=== PATIENT | female | born 1990 | race Two or more races ===

== ENCOUNTER 2018-09-22 07:55 | Inpatient (IN) | payer OTHER ==
[2018-09-22 08:09] VITALS: BMI 46.3
--- NOTE | 2018-09-22 08:26 | PDOC ---
History of Present Illness - General Chief Complaint: Wound Stated Complaint: LUMP ON BUTTOCK History Source: Patient Exam Limitations: No Limitations - History of Present Illness Initial Comments: 09/22/18 09:01 27 yo F with a hx of abscess in the left buttocks inferior aspect presents with pain in the left buttocks region. She states the pain began yesterday. Described as a sharp, 10/10, non radiating, with aggravation with movement, and constant. Per the patient, this is larger than her previous one. Denies fever and chills. Denies paresthesia, incontinence, LE weakness and loss of sensation , and ataxia. 09/22/18 09:32 Past History - Past Medical History Allergies/Adverse Reactions: Allergies Allergy/AdvReac Type Severity Reaction Status Date / Time No Known Allergies Allergy Verified 09/22/18 08:04 Home Medications: Ambulatory Orders Amox-Tr/K Cl [Augmentin - 875Mg Tablet] 1 tab PO BID #14 tablet 09/22/18 Asthma: No Cancer: No Cardiac Disorders: No COPD: No Diabetes: No HTN: No Seizures: No Thyroid Disease: No - Immunization History Immunization Up to Date: No - Suicide/Smoking/Psychosocial Hx Smoking Status: No Smoking History: Unknown if ever smoked Have you smoked in the past 12 months: No Number of Cigarettes Smoked Daily: 0 Hx Alcohol Use: No Drug/Substance Use Hx: No Substance Use Type: None Hx Substance Use Treatment: No Review of Systems - Review of Systems Able to Perform ROS?: Yes Is the patient limited Senegalese proficient: No Constitutional: No: Chills, Diaphoresis, Fever, Weakness HEENTM: No: Eye Pain, Recent change in vision, Ear Pain, Nose Pain, Throat Pain , Mouth Pain Respiratory: No: Cough, Shortness of Breath, Hemoptysis Cardiac (ROS): No: Chest Pain, Lightheadedness, Palpitations, Syncope, Chest Tightness ABD/GI: No: Constipated, Diarrhea, Nausea, Poor Appetite, Poor Fluid Intake, Rectal Bleeding, Vomiting, Indigestion, Abdominal cramping, Tarry Stools : No: Burning, Dysuria, Hematuria Musculoskeletal: No: Back Pain, Joint Pain, Neck Pain Integumentary: Yes: Lesions (abscess on left buttock). No: Bruising, Pruritus, Rash Neurological: No: Headache, Numbness, Tingling, Tremors, Ataxia, Dizziness Psychiatric: No: Change in Appetite Endocrine: No: Unexplained Weight Gain Hematologic/Lymphatic: No: Anemia *Physical Exam - Vital Signs Last Vital Signs Temp Pulse Resp BP Pulse Ox 98.2 F 88 24 H 120/90 99 09/22/18 08:04 09/22/18 08:04 09/22/18 08:04 09/22/18 08:04 09/22/18 08:04 - Physical Exam General Appearance: Yes: Nourished, Appropriately Dressed, Obese. No: Apparent Distress, Intoxicated HEENT: positive: EOMI, LILIYA, Normal Voice, Symmetrical, Pharynx Normal, Hearing Grossly Normal. negative: Pale Conjunctivae, Scleral Icterus (R), Scleral Icterus (L), Muffled/Hoarse voice, Pharyngeal Erythema, Tonsillar Exudate, Tonsillar Erythema, Nasal Congestion, Rhinorrhea, Sinus Tenderness, Excessive drooling Neck: positive: Trachea midline, Supple. negative: Tender, Lymphadenopathy (R) , Lymphadenopathy (L), Tender lateral, Tender midline Respiratory/Chest: positive: Lungs Clear, Normal Breath Sounds. negative: Chest Tender, Respiratory Distress, Accessory Muscle Use, Crackles, Rales, Rhonchi, Stridor Cardiovascular: positive: Regular Rhythm, Regular Rate, S1, S2. negative: Systolic Murmur Gastrointestinal/Abdominal: positive: Normal Bowel Sounds, Flat, Soft. negative : Tender Lymphatic: negative: Adenopathy Musculoskeletal: positive: Normal Inspection. negative: CVA Tenderness, Vertebral Tenderness Extremity: positive: Normal Capillary Refill, Normal Inspection, Normal Range of Motion. negative: Tender, Swelling, Calf Tenderness Integumentary: positive: Normal Color, Dry, Warm, Other (4x3cm abscess located on inferior medial aspect of buttock without red streaks and drainage) Neurologic: positive: felt strip finisher II-XII NML intact, Fully Oriented, Alert, Normal Mood/ Affect, Normal Response, Motor Strength 5/5. negative: EOM Palsy, Facial Droop , Sensory Deficit Moderate Sedation - Procedure Monitoring Vital Signs: Procedure Monitoring Vital Signs Temperature 98.2 F 09/22/18 08:04 Pulse Rate 88 09/22/18 08:04 Respiratory Rate 24 H 09/22/18 08:04 Blood Pressure 120/90 09/22/18 08:04 O2 Sat by Pulse Oximetry (%) 99 09/22/18 08:04 Heart Score/ECG Review - ECG Intrepretation Comment:: ventricular rate is 80 bpm, W[place] is 172 ms, QTc is 410 ms, QRS is [address] elevations or depressions. ED Treatment Course - LABORATORY CBC & Chemistry Diagram: 09/23/18 06:00 09/23/18 06:00 Medical Decision Making - Medical Decision Making 27 yo F with a hx of abscess in the left buttocks inferior aspect presents with pain in the left buttocks region Initial vitals; Initial Vital Signs Temp Pulse Resp BP Pulse Ox 98.2 F 88 24 H 120/90 99 09/22/18 08:04 09/22/18 08:04 09/22/18 08:04 09/22/18 08:04 09/22/18 08:04 Work up: ddx: abscess vs cellulitis will perform an ID to drain abscess. will likely prescribe keflex and bactrim for outpatient use given MRSA history. 09/22/18 10:21 Patient is unable to tolerate I&D due to concerns of pain and inability to tolerate the procedure. requests to be admitted and to go to surgery. will order pre-operative labs. Laboratory Tests 09/22/18 09/22/18 09/22/18 09:44 09:44 11:30 WBC 11.2 H RBC 4.31 Hgb 12.7 Hct 37.2 MCV 86.2 MCH 29.5 MCHC 34.2 RDW 13.4 Plt Count 306 MPV 8.5 Absolute Neuts (auto) 8.3 H Neutrophils % 74.1 Lymphocytes % 18.8 Monocytes % 6.5 Eosinophils % 0.3 D Basophils % 0.3 Nucleated RBC % 0 PT with INR INR PTT (Actin FS) Sodium Potassium Chloride Carbon Dioxide Anion Gap BUN Creatinine Creat Clearance w eGFR Random Glucose Lactic Acid Calcium Total Bilirubin AST ALT Alkaline Phosphatase Total Protein Albumin Urine Color Charity Urine Appearance Cloudy Urine pH 6.0 Ur Specific [place] 1.030 Urine Protein 2+ H Urine Glucose (UA) Negative Urine Ketones Negative Urine Blood 1+ H Urine Nitrite Negative Urine Bilirubin Negative Urine Urobilinogen 2.0 H Ur Leukocyte Esterase 2+ H Urine WBC (Auto) 6 Urine RBC (Auto) 205 Urine HCG, Qual Negative Blood Type Antibody Screen 09/22/18 09/22/18 09/22/18 11:30 11:30 11:30 WBC RBC Hgb Hct MCV MCH MCHC RDW Plt Count MPV Absolute Neuts (auto) Neutrophils % Lymphocytes % Monocytes % Eosinophils % Basophils % Nucleated RBC % PT with INR 14.00 H INR 1.18 H PTT (Actin FS) 32.8 Sodium 139 Potassium 3.9 Chloride 106 Carbon Dioxide 27 Anion Gap 6 L BUN 9 Creatinine 0.6 Creat Clearance w eGFR > 60 Random Glucose 86 Lactic Acid 0.7 Calcium 9.3 Total Bilirubin 0.3 AST 11 L ALT 24 Alkaline Phosphatase 81 Total Protein 7.8 Albumin 3.6 Urine Color Urine Appearance Urine pH Ur Specific [place] Urine Protein Urine Glucose (UA) Urine Ketones Urine Blood Urine Nitrite Urine Bilirubin Urine Urobilinogen Ur Leukocyte Esterase Urine WBC (Auto) Urine RBC (Auto) Urine HCG, Qual Blood Type Antibody Screen 09/22/18 09/22/18 11:30 12:00 WBC RBC Hgb Hct MCV MCH MCHC RDW Plt Count MPV Absolute Neuts (auto) Neutrophils % Lymphocytes % Monocytes % Eosinophils % Basophils % Nucleated RBC % PT with INR INR PTT (Actin FS) Sodium Potassium Chloride Carbon Dioxide Anion Gap BUN Creatinine Creat Clearance w eGFR Random Glucose Lactic Acid Calcium Total Bilirubin AST ALT Alkaline Phosphatase Total Protein Albumin Urine Color Urine Appearance Urine pH Ur Specific [place] Urine Protein Urine Glucose (UA) Urine Ketones Urine Blood Urine Nitrite Urine Bilirubin Urine Urobilinogen Ur Leukocyte Esterase Urine WBC (Auto) Urine RBC (Auto) Urine HCG, Qual Blood Type O POSITIVE Cancelled Antibody Screen Negative Cancelled slight elevation in WBC count. 2+ leukocyste esterase with 6 wbc. given ceftriaxone and flagyl for brock-rectal coverage for abscess. patient was given tylenol for pain management. Consulted Dr. Pagan for surgery. Dr. Pagan accepted the patient. Patient will be admitted. Dispo: Admit. *DC/Admit/Observation/Transfer Diagnosis at time of Disposition: Abscess of buttock - Discharge Dispostion Disposition: HOME Condition at time of disposition: Improved - Prescriptions - Referrals - Patient Instructions - Post Discharge Activity
[2018-09-22] MEDS ORDERED: LIDOCAINE HCL 1%, 10 MG/ML (50 mL VIAL) SQ ONE (09:26)
[2018-09-22] MEDS ORDERED: LIDOCAINE HCL 1%, 10 MG/ML (20ML VIAL) ONE (09:28)
--- NOTE | 2018-09-22 09:28 | PDOC ---
Attending Attestation - Resident Resident Name: Quincy Celeste - ED Attending Attestation I have performed the following: I have examined & evaluated the patient, The case was reviewed & discussed with the resident, I agree w/resident's findings & plan, Exceptions are as noted - HPI HPI: 09/22/18 09:13 27 year old female c/ hx of obesity, bipolar disorder, prior abscesses p/w left lower buttocks abscess. Pt reported that she noticed it approx 2 days ago. Noted that it was fluctuant and tender. But denies fevers, chills. Denies rectal pain. Pt reported having a similar situation in February 2018 that required drainage. Pt incidentally noted to have very small distal medial bilateral inner thigh mild fungal rash (likely from repeated contact between thighs when walking) - Physicial Exam PE: 09/22/18 09:16 GENERAL: Awake, alert, and fully oriented, in no acute distress HEAD: No signs of trauma EYES: EOMI, sclera anicteric, conjunctiva clear ENT: Auricles normal inspection, hearing grossly normal, nares patent, Moist mucosa NECK: Normal ROM, supple EXTREMITIES: Normal range of motion, no edema. No clubbing or cyanosis. No cords, erythema, or tenderness NEUROLOGICAL: Cranial nerves II through XII grossly intact. Normal speech, normal gait SKIN: Left lower buttocks (not extending to rectum) ~ 4x4 cm induration and fluctuance, tender to palpation. - Medical Decision Making 09/22/18 09:28 Vital Signs Temp Pulse Resp BP Pulse Ox 98.2 F 88 24 H 120/90 99 09/22/18 08:04 09/22/18 08:04 09/22/18 08:04 09/22/18 08:04 09/22/18 08:04 Impression: left buttocks abscess with surrounding cellulitis Otherwise, nontoxic appearing and well-appearing. I suspect possible community acquired MRSA I agree with plan for incision and drainage and packing. Wound culture Empiric bactrim and cephalexin Pt incidentally does have these very mild tinea on bilateral inner thighs. Clotrimazole topical BID x 2 weeks 09/22/18 10:18 Pt is absolutely afraid of the pain. After discussion with the patient, patient is unable to comply with bedside I&D. Will obtain labs and cultures. Initiate IV antibiotics ceftriaxone and flagyl. Admit.
[2018-09-22] MEDS ORDERED: ACETAMINOPHEN 1000 MG/100 ML VIAL (NON FORMULARY) IVPB ONE (10:15)
[2018-09-22] MEDS ORDERED: CEFTRIAXONE 1,000 MG in DEXTROSE 5%-WATER - 50 ML IVPB ONE (10:15)
[2018-09-22 10:22] LABS: URINE APPEARANCE CLOUDY; URINE BILIRUBIN NEGATIVE (<2.0 mg/dL); URINE COLOR AMBER; URINE GLUCOSE (UA) NEGATIVE (NEGATIVE); URINE KETONE NEGATIVE (NEGATIVE); URINE LEUK ESTERASE 2+ (NEGATIVE); URINE NITRITE NEGATIVE (NEGATIVE); URINE PROTEIN 2+ (NEGATIVE)
[2018-09-22 11:58] LABS: BASO % 0.3 % (0-2.0); EOS % 0.3 % (0-4.5); HEMATOCRIT 37.2 % (32.4-45.2); HEMOGLOBIN 12.7 GM/dL (10.7-15.3); LYMPH % 18.8 % (8-40); MCH 29.5 pg (25.7-33.7); MCHC 34.2 g/dl (32.0-36.0); MEAN CELL VOLUME 86.2 fl (80-96); MEAN PLT VOLUME 8.5 fl (7.5-11.1); MONO % 6.5 % (3.8-10.2); NEUT % 74.1 % (42.8-82.8); PLATELET COUNT 306 K/MM3 (134-434); RBC 4.31 M/mm3 (3.60-5.2); RDW 13.4 % (11.6-15.6); WHITE BLOOD COUNT 11.2 K/mm3 (4.0-10.0)
[2018-09-22] MEDS ORDERED: morphine CARPU-JECT 2 MG/1 ML DISP.SYRIN IVPUSH ONE (12:09)
[2018-09-22] MEDS ORDERED: ACETAMINOPHEN INJECTION 100 ML IVPB ONE (12:22)
[2018-09-22] MEDS ORDERED: CEFTRIAXONE 1 GM/50 ML BAG ONE (12:22)
[2018-09-22 12:31] LABS: ALBUMIN 3.6 g/dl (3.4-5.0); ALK PHOS 81 U/L (45-117); ANION GAP 6 MMOL/L (8-16); BILIRUBIN,TOTAL 0.3 mg/dL (0.2-1); BLOOD UREA NITROGEN 9 mg/dL (7-18); CALCIUM 9.3 mg/dL (8.5-10.1); CHLORIDE 106 mmol/L (98-107); CO2 27 mmol/L (21-32); CREATININE 0.6 mg/dL (0.55-1.3); GLUCOSE,RANDOM 86 mg/dL (74-106); POTASSIUM 3.9 mmol/L (3.5-5.1); SGOT/AST 11 U/L (15-37); SGPT/ALT 24 U/L (13-61); SODIUM 139 mmol/L (136-145); TOT PROT 7.8 g/dl (6.4-8.2)
[2018-09-22 12:47] LABS: INR 1.18 (0.83-1.09)
[2018-09-22 12:50] LABS: ACTIVATED PTT 32.8 SECONDS (25.2-36.5)
[2018-09-22] MEDS ORDERED: MIDAZOLAM HCL 2 MG/2 ML SINGLE DOSE VIAL ONE (15:08)
[2018-09-22] MEDS ORDERED: PROPOFOL 20 ML ONE (15:08)
[2018-09-22] MEDS ORDERED: PROMETHAZINE HCL 25 MG/1 ML VIAL IVPUSH PRN ×2 (15:09→16:53)
[2018-09-22] MEDS ORDERED: ONDANSETRON 4 MG/2 ML VIAL IVPUSH PRN ×2 (15:09→16:53)
[2018-09-22] MEDS ORDERED: oxyCODONE HCL 5 MG TABLET PO PRN (15:09)
[2018-09-22] MEDS ORDERED: LIDOCAINE HCL/PF 2% SDV 5ML VIAL ONE (15:25)
--- NOTE | 2018-09-22 15:26 | CONSULT ---
- Consultation REQUESTING PROVIDER: Wendie GORDILLO CONSULT REQUEST: We have been asked to surgically evaluate this patient for management of an ABSSSI of the left medial thigh PCP:Venecia Gregory NP HISTORY OF PRESENT ILLNESS:27 y/o female w/h/o previous ABSSSI in the past presented w/pain and swelling over # days; she came to the ER for rvaluation where she refused I and D under [place]. PMHx: none PSHx: foot surgery Home Medications Medication Instructions Recorded Amox-Tr/K Cl [Augmentin - 875Mg 1 tab PO BID #14 tablet 09/22/18 Tablet] Allergies Allergy/AdvReac Type Severity Reaction Status Date / Time No Known Allergies Allergy Verified 09/22/18 08:04 PHYSICAL EXAM: GENERAL: Awake, alert, and fully oriented, in no acute distress. HEAD: Normal with no signs of trauma. EYES: PERRL, sclera anicteric, conjunctiva clear. NECK: Normal ROM, supple without lymphadenopathy, JVD, or masses. ABDOMEN: Soft, nontender, not distended, normoactive bowel sounds, no guarding, no rebound, no masses. No organomegaly. MUSCULOSKELETAL: Normal ROM at all joints. No bony deformities or tenderness. No CVA tenderness. UPPER EXTREMITIES: 2+ pulses, warm, well-perfused. No cyanosis. Cap refill <2 seconds. No peripheral edema. LOWER EXTREMITIES: 2+ pulses, warm, well-perfused. No calf tenderness. No peripheral edema. NEUROLOGICAL: Normal speech, gait not observed. PSYCH: Cooperative. Good eye contact. Appropriate mood and affect. SKIN: Warm, dry, normal turgor, soft tissue absces w/ttp left medial thigh Vital Signs Temperature 98.1 F 09/22/18 14:45 Pulse Rate 92 H 09/22/18 14:45 Respiratory Rate 18 09/22/18 14:45 Blood Pressure 128/86 09/22/18 14:45 O2 Sat by Pulse Oximetry (%) 98 09/22/18 14:20 Lab Results WBC 11.2 K/mm3 (4.0-10.0) H 09/22/18 11:30 RBC 4.31 M/mm3 (3.60-5.2) 09/22/18 11:30 Hgb 12.7 GM/dL (10.7-15.3) 09/22/18 11:30 Hct 37.2 % (32.4-45.2) 09/22/18 11:30 MCV 86.2 fl (80-96) 09/22/18 11:30 MCHC 34.2 g/dl (32.0-36.0) 09/22/18 11:30 RDW 13.4 % (11.6-15.6) 09/22/18 11:30 Plt Count 306 K/MM3 (134-434) 09/22/18 11:30 Sodium 139 mmol/L (136-145) 09/22/18 11:30 Potassium 3.9 mmol/L (3.5-5.1) 09/22/18 11:30 Chloride 106 mmol/L (98-107) 09/22/18 11:30 Carbon Dioxide 27 mmol/L (21-32) 09/22/18 11:30 Anion Gap 6 MMOL/L (8-16) L 09/22/18 11:30 BUN 9 mg/dL (7-18) 09/22/18 11:30 Creatinine 0.6 mg/dL (0.55-1.3) 09/22/18 11:30 Random Glucose 86 mg/dL (74-106) 09/22/18 11:30 Calcium 9.3 mg/dL (8.5-10.1) 09/22/18 11:30 Blood Type O POSITIVE 09/22/18 11:30 Antibody Screen Negative 09/22/18 11:30 INR 1.18 (0.83-1.09) H 09/22/18 11:30 IMP; soft tissue abscess left medial thigh PLAN: I and D in OR under [place]; r/b/t/a's d/w the patient who has signed informed consent. Andrew Pagan MD FACS
--- NOTE | 2018-09-22 15:35 | HP ---
CHIEF COMPLAINT: Abscess of left proximal medial thigh PCP: HISTORY OF PRESENT ILLNESS: Patient is a 27 y/o female with past medical hx of bipolar disorder (on no home medications) and obesity. She presents to the ED for a 3 month history of recurrent left proximal thigh abscess. She has had this abscess before and was treated with IV antibiotics at [facility] but she noticed the abscess to return and she noted it to be tender to touch and fluctuant. She denies any fevers at home or chills. She has intense sharp pain because of this abscess. She is also noted to have scattered areas of fungal rash on inner thighs that she says has been going on for a while. ER course was notable for: (1) I&D with 20cc drainage in the OR (2) UA: leukocyte esterase 2+ (3) ceftriaxone and flagyl. PAST SURGICAL HISTORY: IUD placement Social History: Smoking: none Alcohol: none Drugs: none Family History: Allergies No Known Allergies Allergy (Verified 09/22/18 08:04) HOME MEDICATIONS: Home Medications Medication Instructions Recorded Amox-Tr/K Cl [Augmentin - 875Mg 1 tab PO BID #14 tablet 09/22/18 Tablet] PHYSICAL EXAMINATION Vital Signs - 24 hr 09/22/18 09/22/18 09/22/18 08:04 14:12 14:20 Temperature 98.2 F 98.5 F 98.1 F Pulse Rate 88 92 H Pulse Rate [ 84 Left Radial] Respiratory 24 H 16 16 Rate Blood Pressure 120/90 128/86 Blood Pressure 133/84 [Right Arm] O2 Sat by Pulse 99 98 98 Oximetry (%) 09/22/18 14:45 Temperature 98.1 F Pulse Rate 92 H Pulse Rate [ Left Radial] Respiratory 18 Rate Blood Pressure 128/86 Blood Pressure [Right Arm] O2 Sat by Pulse Oximetry (%) GENERAL: Awake, alert, and fully oriented, in no acute distress. HEAD: Normal with no signs of trauma. EYES: Pupils equal, round and reactive to light, extraocular movements intact, sclera anicteric, conjunctiva clear. No lid lag. EARS, NOSE, THROAT: Ears normal, nares patent, oropharynx clear without exudates. Moist mucous membranes. NECK: Normal range of motion, supple without lymphadenopathy, JVD, or masses. LUNGS: Breath sounds equal, clear to auscultation bilaterally. No wheezes, and no crackles. No accessory muscle use. HEART: Regular rate and rhythm, normal S1 and S2 without murmur, rub or gallop. ABDOMEN: Soft, nontender, not distended, normoactive bowel sounds, no guarding, no rebound, no masses. No hepatomegaly or splenomegaly. MUSCULOSKELETAL: Normal range of motion at all joints. No bony deformities or tenderness. No CVA tenderness. UPPER EXTREMITIES: 2+ pulses, warm, well-perfused. No cyanosis. No clubbing. No peripheral edema. LOWER EXTREMITIES: 2+ pulses, warm, well-perfused. No calf tenderness. No peripheral edema. NEUROLOGICAL: Cranial nerves II-XII intact. Normal speech. Normal gait. PSYCHIATRIC: Cooperative. Good eye contact. Appropriate mood and affect. SKIN: Warm, dry, normal turgor, no rashes or lesions noted, normal capillary refill. Laboratory Results - last 24 hr 09/22/18 09/22/18 09/22/18 09:44 09:44 11:30 WBC 11.2 H RBC 4.31 Hgb 12.7 Hct 37.2 MCV 86.2 MCH 29.5 MCHC 34.2 RDW 13.4 Plt Count 306 MPV 8.5 Absolute Neuts (auto) 8.3 H Neutrophils % 74.1 Lymphocytes % 18.8 Monocytes % 6.5 Eosinophils % 0.3 D Basophils % 0.3 Nucleated RBC % 0 PT with INR INR PTT (Actin FS) Sodium Potassium Chloride Carbon Dioxide Anion Gap BUN Creatinine Creat Clearance w eGFR Random Glucose Lactic Acid Calcium Total Bilirubin AST ALT Alkaline Phosphatase Total Protein Albumin Urine Color Charity Urine Appearance Cloudy Urine pH 6.0 Ur Specific [place] 1.030 Urine Protein 2+ H Urine Glucose (UA) Negative Urine Ketones Negative Urine Blood 1+ H Urine Nitrite Negative Urine Bilirubin Negative Urine Urobilinogen 2.0 H Ur Leukocyte Esterase 2+ H Urine WBC (Auto) 6 Urine RBC (Auto) 205 Urine HCG, Qual Negative Blood Type Antibody Screen 09/22/18 09/22/18 09/22/18 11:30 11:30 11:30 WBC RBC Hgb Hct MCV MCH MCHC RDW Plt Count MPV Absolute Neuts (auto) Neutrophils % Lymphocytes % Monocytes % Eosinophils % Basophils % Nucleated RBC % PT with INR 14.00 H INR 1.18 H PTT (Actin FS) 32.8 Sodium 139 Potassium 3.9 Chloride 106 Carbon Dioxide 27 Anion Gap 6 L BUN 9 Creatinine 0.6 Creat Clearance w eGFR > 60 Random Glucose 86 Lactic Acid 0.7 Calcium 9.3 Total Bilirubin 0.3 AST 11 L ALT 24 Alkaline Phosphatase 81 Total Protein 7.8 Albumin 3.6 Urine Color Urine Appearance Urine pH Ur Specific [place] Urine Protein Urine Glucose (UA) Urine Ketones Urine Blood Urine Nitrite Urine Bilirubin Urine Urobilinogen Ur Leukocyte Esterase Urine WBC (Auto) Urine RBC (Auto) Urine HCG, Qual Blood Type Antibody Screen 09/22/18 09/22/18 11:30 12:00 WBC RBC Hgb Hct MCV MCH MCHC RDW Plt Count MPV Absolute Neuts (auto) Neutrophils % Lymphocytes % Monocytes % Eosinophils % Basophils % Nucleated RBC % PT with INR INR PTT (Actin FS) Sodium Potassium Chloride Carbon Dioxide Anion Gap BUN Creatinine Creat Clearance w eGFR Random Glucose Lactic Acid Calcium Total Bilirubin AST ALT Alkaline Phosphatase Total Protein Albumin Urine Color Urine Appearance Urine pH Ur Specific [place] Urine Protein Urine Glucose (UA) Urine Ketones Urine Blood Urine Nitrite Urine Bilirubin Urine Urobilinogen Ur Leukocyte Esterase Urine WBC (Auto) Urine RBC (Auto) Urine HCG, Qual Blood Type O POSITIVE Cancelled Antibody Screen Negative Cancelled ASSESSMENT/PLAN: Patient is a 27 year old female with a past medical history of obesity, bipolar disorder who presented with pain in left gluteal area and was found to have abscess. She is s/p I&D in the ED. Surgery: Left gluteal abscess s/p I&D in the OR. 20cc of pus drained and cultured. Given ceftriaxone and flagyl in the ED Will give clindamycin and continue until wound culture results Pain management with oxycodone Monitor labs, vitals UTI + 2 leuk est in UA Awaiting urine culture. Skin Numerous skin lesions on anterior thighs, possible fungal Will start on topical fungal cream Follow up with PCP, or dermatology outpatient as these appear chronic and non healing. Morbid obesity BMI dietary consult HmgA1c in a.m. fen LR @ 100 cmp regular diet prophy Heparin Visit type - Emergency Visit Emergency Visit: Yes ED Registration Date: 09/22/18 Care time: The patient presented to the Emergency Department on the above date and was hospitalized for further evaluation of their emergent condition. - New Patient This patient is new to me today: Yes Date on this admission: 09/22/18 - Critical Care Critical Care patient: No
[2018-09-22] MEDS ORDERED: KETOROLAC TROMETHAMINE 30 MG/1 ML VIAL ONE (15:54)
--- NOTE | 2018-09-22 16:24 | OP ---
Operative Note - Note: Operative Date: 09/22/18 Pre-Operative Diagnosis: abscess inferior left buttock Operation: incision/drainage inferior left buttock abscess Post-Operative Diagnosis: Same as Pre-op Surgeon: Andrew Pagan Anesthesia: General Specimens Removed: pus for C and S Estimated Blood Loss (mls): 20
[2018-09-22] MEDS: oxyCODONE HCL 5 MG TABLET PO PRN (20:23)
[2018-09-22] MEDS: LACTATED RINGERS SOLUTION 1,000 ML/1,000 ML INFUS.BAG IV SCH (20:24)
[2018-09-22] MEDS: CLINDAMYCIN 600MG PREMIX IVPB 600 MG/50 ML BAG IVPB SCH (20:24)
[2018-09-22] MEDS: HEPARIN NA (PORCINE) 5,000 UNITS/ML 1ML VIAL SQ SCH (22:31)
[2018-09-23] MEDS: NYSTATIN 100,000 UNIT/GM TOPICAL CREAM 15 GM TUBE TP SCH ×3 (01:58→13:13)
[2018-09-23] MEDS: LACTATED RINGERS SOLUTION 1,000 ML/1,000 ML INFUS.BAG IV SCH (02:34)
[2018-09-23] MEDS: CLINDAMYCIN 600MG PREMIX IVPB 600 MG/50 ML BAG IVPB SCH ×2 (02:34→10:04)
[2018-09-23] MEDS: oxyCODONE HCL 5 MG TABLET PO PRN (02:37)
--- NOTE | 2018-09-23 08:03 | OP ---
DATE OF OPERATION: 09/22/2018 PREOPERATIVE DIAGNOSIS: Abscess inferior left buttock. POSTOPERATIVE DIAGNOSIS: Abscess inferior left buttock. PROCEDURE: Incision and drainage of inferior left buttock abscess. SURGEON: Andrew Pagan MD ANESTHESIA: General. OPERATIVE FINDINGS: There was a large soft tissue abscess at the medial left buttock posterior and medial to the rectum. The rest of the findings were unremarkable. DESCRIPTION OF PROCEDURE: The patient was placed in the supine position on the operating room table, and after the induction of general anesthesia, she was placed in the dorsal lithotomy position. The area of the abscess was prepped with Betadine and draped in a sterile fashion. A time-out was taken and then incision made with a scalpel and taken down through skin and subcutaneous tissue. All loculations were broken up using a combination of blunt and sharp dissection and purulent drainage sent for culture and sensitivity. Copious irrigation was carried out with saline and peroxide in a 50/50 concentration and then hemostasis secured with electrocautery. The wound was packed with 1-inch iodoform gauze and dressed with dry sterile dressings and an ABD pad and the procedure terminated at this point and the patient aroused from general anesthesia and transferred to the post anesthesia care unit in stable condition awake and alert. ESTIMATED BLOOD LOSS: 20 mL. REPLACEMENTS: Crystalloid. DRAINS: 1-inch iodoform packing. SPECIMENS: Pus to microbiology for culture and sensitivity. I, Andrew Pagan, was physically present in the operating room from the time the patient was placed on the operating room table until she was transferred to the post anesthesia care unit in [facility]. MD CHELLE Wasserman/[id number] MTDD
[2018-09-23 08:20] LABS: HEMATOCRIT 35.5 % (32.4-45.2); HEMOGLOBIN 11.9 GM/dL (10.7-15.3); MCH 29.4 pg (25.7-33.7); MCHC 33.5 g/dl (32.0-36.0); MEAN CELL VOLUME 87.7 fl (80-96); MEAN PLT VOLUME 8.8 fl (7.5-11.1); PLATELET COUNT 274 K/MM3 (134-434); RBC 4.05 M/mm3 (3.60-5.2); RDW 13.9 % (11.6-15.6); WHITE BLOOD COUNT 8.1 K/mm3 (4.0-10.0)
[2018-09-23 08:51] LABS: ALBUMIN 3.3 g/dl (3.4-5.0); ALK PHOS 81 U/L (45-117); ANION GAP 8 MMOL/L (8-16); BILIRUBIN,TOTAL 0.4 mg/dL (0.2-1); BLOOD UREA NITROGEN 9 mg/dL (7-18); CALCIUM 8.7 mg/dL (8.5-10.1); CHLORIDE 105 mmol/L (98-107); CO2 25 mmol/L (21-32); CREATININE 0.6 mg/dL (0.55-1.3); GLUCOSE,RANDOM 83 mg/dL (74-106); POTASSIUM 3.6 mmol/L (3.5-5.1); SGOT/AST 10 U/L (15-37); SGPT/ALT 18 U/L (13-61); SODIUM 137 mmol/L (136-145); TOT PROT 7.1 g/dl (6.4-8.2)
--- NOTE | 2018-09-23 09:40 | PN ---
Progress Note (short form) - Note Progress Note: Anesthesia post op note, POD#1. S/P I&D Left thigh abscess under GA. Pat seen and examined. VSS. No apparent anesthesia related complications. signed off.
[2018-09-23] MEDS: HEPARIN NA (PORCINE) 5,000 UNITS/ML 1ML VIAL SQ SCH (10:04)
[2018-09-23 12:50] VITALS: BP 132/59; PULSE 89; TEMP 98.7
--- NOTE | 2018-09-23 12:58 | PN ---
Progress Note (short form) - Note Progress Note: Attending Surgeon POd#1 No c/o VSS AF wound-open and packing removed; no drainage; no cellulitis; induration reslving WBC-nl Cultures pending IMP: stable post op PLAN: May be d/c'ed to outpatient office f/u with local wound care w/ showers and/or sitz baths; do not believe further antibiotic tx. is indicated. Andrew Pagan MD FACS
--- NOTE | 2018-09-23 14:11 | DS ---
Physical Exam: SUBJECTIVE: Patient seen and examined at the bedside. seen by surgery, feels well, wants to go home. her mother will help her change dressings. OBJECTIVE: Vital Signs Period Temp Pulse Resp BP Sys/Dyer Pulse Ox Last 24 Hr 97.5 F-98.7 F 74-107 16-20 117-144/59-88 98-100 PHYSICAL EXAM GENERAL: Awake, alert, and fully oriented, in no acute distress. HEAD: Normal with no signs of trauma. EYES: Pupils equal, round and reactive to light, extraocular movements intact, sclera anicteric, conjunctiva clear. No lid lag. EARS, NOSE, THROAT: Ears normal, nares patent, oropharynx clear without exudates. Moist mucous membranes. NECK: Normal range of motion, supple without lymphadenopathy, JVD, or masses. LUNGS: Breath sounds equal, clear to auscultation bilaterally. No wheezes, and no crackles. No accessory muscle use. HEART: Regular rate and rhythm, normal S1 and S2 without murmur, rub or gallop. ABDOMEN: Soft, nontender, not distended, normoactive bowel sounds, no guarding, no rebound, no masses. No hepatomegaly or splenomegaly. MUSCULOSKELETAL: Normal range of motion at all joints. No bony deformities or tenderness. No CVA tenderness. UPPER EXTREMITIES: 2+ pulses, warm, well-perfused. No cyanosis. No clubbing. No peripheral edema. LOWER EXTREMITIES: 2+ pulses, warm, well-perfused. No calf tenderness. No peripheral edema. NEUROLOGICAL: Cranial nerves II-XII intact. Normal speech. Normal gait. PSYCHIATRIC: Cooperative. Good eye contact. Appropriate mood and affect. SKIN: Warm, dry, normal turgor, no rashes or lesions noted, normal capillary refill. LABS Laboratory Results - last 24 hr 09/22/18 09/23/18 09/23/18 12:00 06:00 06:00 WBC 8.1 RBC 4.05 Hgb 11.9 Hct 35.5 MCV 87.7 MCH 29.4 MCHC 33.5 RDW 13.9 Plt Count 274 MPV 8.8 Sodium Potassium Chloride Carbon Dioxide Anion Gap BUN Creatinine Creat Clearance w eGFR Random Glucose Hemoglobin A1c % 5.6 Calcium Total Bilirubin AST ALT Alkaline Phosphatase Total Protein Albumin Blood Type Cancelled Antibody Screen Cancelled 09/23/18 06:00 WBC RBC Hgb Hct MCV MCH MCHC RDW Plt Count MPV Sodium 137 Potassium 3.6 Chloride 105 Carbon Dioxide 25 Anion Gap 8 BUN 9 Creatinine 0.6 Creat Clearance w eGFR > 60 Random Glucose 83 Hemoglobin A1c % Calcium 8.7 Total Bilirubin 0.4 AST 10 L ALT 18 Alkaline Phosphatase 81 Total Protein 7.1 Albumin 3.3 L Blood Type Antibody Screen Date of Admission:09/22/18 Date of Discharge: 09/23/18 PRE HOSPITAL COURSE: Patient is a 27 year old female with a past medical history of obesity, bipolar disorder who presented with pain in left gluteal area and was found to have abscess. She is s/p I&D in the OR.. HOSPITAL COURSE: Surgery: Left gluteal abscess s/p I&D in the OR on 09/22/2018. 20cc of pus drained and cultured. Given ceftriaxone and flagyl in the ED. Clindamycin given during hospital stay. Wound cultures pending. Denies any further pain. Cleared by surgery for discharge. UTI + 2 leuk est in UA. UC contaminated, and repeated. Patient is asymptomatic, will not treat at the moment until UC results. Skin Numerous skin lesions on anterior thighs, possible fungal Started on topical cream. Referral given for dermatology outpatient. Morbid obesity BMI elevated dietary consult as outpatient with PCP. DISCHARGE: Discharge home with surgery and dermatology follow up as an outpatient. No further antibiotics recommended. Minutes to complete discharge: 60 Discharge Summary Reason For Visit: ABSCESS OF BUTTOCK Current Active Problems Abscess of buttock (Acute) Condition: Improved - Instructions Diet, Activity, Other Instructions: Dr. Pagan Discharge Instructions Dear PINKY NEWBERRY, Post Operative Instructions Physical activity Resume your normal everyday activity as tolerated no heavy lifting or exercise until seen by your surgeon. You may walk unlimited amounts of and climb stairs. You may resume driving the car when you feel safe and comfortable behind the wheel. Wound care Sitz baths three times a day, then keep covered and dry. Do not apply ointments or lotions to area. Diet There are no dietary restrictions. Eat healthy, high-fiber foods. Drink 6 to 8 glasses of liquid each day. This will assist in keeping your bowels are regular. Pain management You may take Tylenol or acetaminophen or Ibuprofen (for example, Motrin, Advil etc.) Any pain prescription medication ordered should be taken as prescribed for moderate to severe pain. Call Dr. Pagan for any of the following: Severe pain not relieved by medication Fever of 101 or higher Excessive bleeding or drainage on dressing Inability to urinate If you experience any chest pain or shortness of breath please seek emergency treatment immediately. Call the office at [phone] for a post operative appointment in 7 - 10 days. A referral has been made part of your packet for a dermatology consult for your thigh rash. Referrals: Sabiha Freeman MD [Staff Physician] - Mary Manzano MD [Primary Care Provider] - Disposition: HOME - Home Medications Comprehensive Discharge Medication List: Ambulatory Orders Amox-Tr/K Cl [Augmentin - 875Mg Tablet] 1 tab PO BID #14 tablet 09/22/18 This patient is new to me today: No Emergency Visit: Yes ED Registration Date: 09/22/18 Care time: The patient presented to the Emergency Department on the above date and was hospitalized for further evaluation of their emergent condition. Critical Care patient: No - Discharge Referral Referred to [facility] No
--- NOTE | 2018-09-23 14:42 | EKG ---
Test Reason : Blood Pressure : / mmHG Vent. Rate : 080 BPM Atrial Rate : 080 BPM P-R Int : 172 ms QRS Dur : 088 ms QT Int : 356 ms P-R-T Axes : 033 038 033 degrees QTc Int : 410 ms NORMAL SINUS RHYTHM NORMAL ECG NO PREVIOUS ECGS AVAILABLE Confirmed by Lavelle Borges MD ([id number]) on 09/23/2018 2:42:38 PM Referred By: Confirmed By:Lavelle Borges MD
== END 2018-09-23 16:53 | disposition home or self-care (01) | DRG 383 ==
LOC: JER 07:55 → JERBED 13:20 → J6S 14:19
PROVIDERS: ADMIT Internal Medicine; ATTEND Nurse Practitioner Family
PROC: 0J990ZX Drainage of Buttock Subcutaneous Tissue and Fascia, Open Approach, Diagnostic (ICD-10-PCS; principal; 2018-09-22 14:30)
DX: L02.31 Cutaneous abscess of buttock (principal); E66.01 Morbid (severe) obesity due to excess calories; Z68.42 Body mass index [BMI] 45.0-49.9, adult; N39.0 Urinary tract infection, site not specified; F31.89 Other bipolar disorder
CPT/HCPCS: 36415; 80053; 81003; 81015; 83036; 83605; 84703; 85025; 85027; 85610; 85730; 86850; 86900; 86901; 87040; 87070; 87076; 87086; 87205; 93005; 93010; 94760; 99285-25; J0131; J1644

== ENCOUNTER 2019-03-19 09:05 | Emergency (ER) | payer OTHER ==
[2019-03-19 09:09] VITALS: BP 131/89; PULSE 96; TEMP 98.3; BMI 45.7
[2019-03-19] MEDS ORDERED: DEXAMETHASONE LIQUID 0.5 MG/5 ML 240 ML BULK BOTTLE PO ONE (09:54)
[2019-03-19] MEDS ORDERED: ACETAMINOPHEN 325 MG TABLET (FP) PO ONE (09:54)
[2019-03-19] MEDS ORDERED: ACETAMINOPHEN 325 MG TABLET (FP) ONE (09:56)
[2019-03-19] MEDS ORDERED: DEXAMETHASONE SOD PHOSPHATE 10 MG/1 ML VIAL ONE (09:57)
--- NOTE | 2019-03-19 10:18 | PDOC ---
History of Present Illness - General Chief Complaint: Sore Throat Stated Complaint: SORE THROAT Time Seen by Provider: 03/19/19 09:15 History Source: Patient Exam Limitations: No Limitations Past History - Travel Traveled outside of the country in the last 30 days: No Close contact w/someone who was outside of country & ill: No - Past Medical History Allergies/Adverse Reactions: Allergies Allergy/AdvReac Type Severity Reaction Status Date / Time No Known Allergies Allergy Verified 03/19/19 09:09 Home Medications: Ambulatory Orders Amox-Tr/K Cl [Augmentin - 875Mg Tablet] 1 tab PO BID #14 tablet 09/22/18 Azithromycin [Zithromax 250mg Tablets -] 250 mg PO UTDICT #6 tab 03/19/19 Ibuprofen 600 mg PO Q6H #30 tablet 03/19/19 Loratadine [Claritin -] 10 mg PO DAILY #30 tablet 03/19/19 Asthma: No Cancer: No Cardiac Disorders: No COPD: No Diabetes: No HTN: No Seizures: No Thyroid Disease: No - Immunization History Immunization Up to Date: No - Suicide/Smoking/Psychosocial Hx Smoking Status: No Smoking History: Never smoked Have you smoked in the past 12 months: No Number of Cigarettes Smoked Daily: 0 Information on smoking cessation initiated: No Hx Alcohol Use: No Drug/Substance Use Hx: No Substance Use Type: None Hx Substance Use Treatment: No Review of Systems - Review of Systems Able to Perform ROS?: Yes Is the patient limited [place] proficient: No Constitutional: Yes: Chills. No: Fever, Weakness HEENTM: Yes: Nose Congestion, Throat Pain, Difficulty Swallowing. No: Eye Pain , Ear Pain, Throat Swelling Respiratory: No: Cough, Shortness of Breath, Wheezing ABD/GI: No: Diarrhea, Nausea, Vomiting Integumentary: No: Erythema, Pruritus, Rash Neurological: No: Headache, Paresthesia, Weakness All Other Systems: Reviewed and Negative *Physical Exam - Vital Signs Last Vital Signs Temp Pulse Resp BP Pulse Ox 98.3 F 96 H 19 131/89 100 03/19/19 09:07 03/19/19 09:07 03/19/19 09:07 03/19/19 09:07 03/19/19 09:07 - Physical Exam General Appearance: Yes: Nourished, Appropriately Dressed. No: Apparent Distress HEENT: positive: EOMI, LILIYA, TMs Normal, Tonsillar Erythema. negative: Pharyngeal Erythema, Tonsillar Exudate Neck: positive: Trachea midline, Supple. negative: Tender, Rigid, Lymphadenopathy (R), Lymphadenopathy (L) Respiratory/Chest: positive: Lungs Clear, Normal Breath Sounds. negative: Chest Tender, Respiratory Distress, Accessory Muscle Use, Crackles, Rales, Rhonchi Cardiovascular: positive: Regular Rhythm, Regular Rate, S1, S2 (present). negative: Murmur Neurologic: positive: Fully Oriented, Alert, Normal Mood/Affect, Normal Response ED Treatment Course - Medications Given in the ED: ED Medications Discontinued Medications Generic Name Dose Route Start Last Admin Trade Name Kendrick PRN Reason Stop Dose Admin Acetaminophen 650 mg 03/19/19 09:54 03/19/19 09:57 Tylenol - PO 03/19/19 09:55 650 mg ONCE ONE Administration Dexamethasone 10 mg 03/19/19 09:54 03/19/19 09:57 Decadron Liquid - PO 03/19/19 09:55 10 mg ONCE ONE Administration Medical Decision Making - Medical Decision Making 03/19/19 11:16 The patient is a 28 y/o F who presents to the ER with 7 weeks of sore throat. She states that she has not taken any medication for her pain. She states the pain increased so she came to the ER today for further evaluation. Admits to throat pain, congestion, chills and difficulty swallowing. Denies cough, n/v/d A/P: Pharyngitis On exam tonsils are mildly erythematous without exudate or edema. Uvula is midline Rapid strep negative Unlikely mono Given length of symptoms will treat with Z-pack and send home with PCP follow up Pt comfortable with plan. Understands all d/c instructions and all questions were answered. *DC/Admit/Observation/Transfer Diagnosis at time of Disposition: Acute pharyngitis Qualifiers: Pharyngitis/tonsillitis etiology: unspecified etiology Qualified Code(s): J02.9 - Acute pharyngitis, unspecified - Discharge Dispostion Disposition: HOME Condition at time of disposition: Stable Decision to Admit order: No - Prescriptions Prescriptions: Azithromycin [Zithromax 250mg Tablets -] 250 mg PO UTDICT #6 tab Ibuprofen 600 mg PO Q6H #30 tablet Loratadine [Claritin -] 10 mg PO DAILY #30 tablet - Referrals Referrals: Elroy Ruiz MD [Staff Physician] - - Patient Instructions Printed Discharge Instructions: DI for Viral Pharyngitis Additional Instructions: You have a sore throat or pharyngitis. Rapid strep testing was negative today. Take the Z-pack as directed Take the Claritin daily You may take Motrin 600 mg every 6 hours as needed for pain. Please do warm water gargles and cough drops to help with your pain. Change your toothbrush when you started feeling better. Follow-up with your primary care doctor. Return to the ER for fever, difficulty breathing, difficulty swallowing, or if you have any changes in your symptoms. - Post Discharge Activity Forms/Work/School Notes: Back to Work
== END 2019-03-19 11:40 | disposition home or self-care (01) ==
LOC: JERFT 09:05
DX: J02.9 Acute pharyngitis, unspecified (principal)
CPT/HCPCS: 87070; 87077; 87880; 99282-25

== ENCOUNTER 2019-03-31 11:06 | Emergency (ER) | payer OTHER | END 2019-03-31 11:46 | disposition left against medical advice (07) | LOC: JERFT 11:06 ==

== ENCOUNTER 2020-05-30 04:49 | Day surgery (SDC) | payer OTHER ==
--- OUTSIDE RECORDS SUMMARY | 2020-05-21 08:15 | XMS ---
:1990 Author Organization [facility] Care Team Providers Name Role Phone ED STAFF PHYSICIAN, STAFF Unavailable Unavailable ZUNASSIGNED Unavailable Unavailable JARVIS Osuna Unavailable Unavailable DORIS DOWNEY Unavailable Unavailable ED STAFF PHYSICIAN Unavailable Unavailable Re-disclosure Warning The records that you are about to access may contain information from federally- assisted alcohol or drug abuse programs. If such information is present, then the following federally mandated warning applies: This information has been disclosed to you from records protected by federal confidentiality rules (42 CFR part 2). The federal rules prohibit you from making any further disclosure of this information unless further disclosure is expressly permitted by the written consent of the person to whom it pertains or as otherwise permitted by 42 CFR part 2. A general authorization for the release of medical or other information is NOT sufficient for this purpose. The Federal rules restrict any use of the information to criminally investigate or prosecute any alcohol or drug abuse patient.The records that you are about to access may contain highly sensitive health information, the redisclosure of which is protected by Article 27-F of the [facility] Public [facility] law. If you continue you may haveaccess to information: Regarding HIV / AIDS; Provided by facilities licensed or operated by the [facility] Office of Mental Health; or Provided by the [facility] Office for People With Developmental Disabilities. If such information is present, then the following [facility] mandated warning applies: This information has been disclosed to you from confidential records which are protected by state law. State law prohibits you from making any further disclosure of this information without the specific written consent of the person to whom it pertains, or as otherwise permitted by law. Any unauthorized further disclosure in violation of state law may result in a fine or alf sentence or both. A general authorization for the release of medical or other information is NOT sufficient authorization for further disclosure. Allergies and Adverse Reactions Type Description Substance Reaction Status Data Source(s ) No Known No Known Allergies No Known eCW3 ( [facility]erg[facility]) No Known No Known Allergies No Known eCW3 ( [place] Allergies Allergies [facility]) No Known No Known Allergies No Known eCW3 ( [place] Allergies Allergies [facility]) No Known No Known Allergies No known eCW3 ( [place] Allergies allergies [facility]) Encounters Encounter Providers Location Date Indications Data Source(s ) Emergency Attender: JARVIS [place] 04/29/2020 [facility] LAttender: 08:53:00 PM [facility] STAFF ED STAFF EDT - PHYSICIANAdmitter: 04/29/[facility] 10:41:00 PM LReferrer: EDT ZUNASSIGNED Patient discharged. Emergency Attender: DORIS Redding 08/30/2019 07:04 :00 PM [facility] CAttender: ED STAFF EST - 08/30/2019 [facility] PHYSICIANAttender: STAFF ED 11:54:00 PM EST STAFF PHYSICIANAdmitter: DORIS Jara Patient discharged. Outpatient [facility] Primary [facility] 03/14/2019 12:00:00 AM eCW3 ([facility] EDT - 03/14/2019 12:00:00 Health Care) AM EDT Outpatient [facility] 03/13/2019 12:00:00 AM eCW3 ([facility] EDT - 03/13/2019 12:00:00 Health Care) AM EDT Emergency H [facility] 11/08/2018 12:00:00 AM eCW3 ([facility] EDT - 11/08/2018 12:00:00 Health Care) AM EDT Outpatient 11/03/2018 07:34:00 AM Cu reMD ([facility]) [facility]patient [facility] 10/03/2018 12:00:00 AM eCW3 ([facility] EST - 10/03/2018 12:00:00 Health Care) AM EST Immunizations Vaccine Date Status Description Data Source(s) New in 2011. IIV4 11/08/2018 completed eCW3 ([facility] 02:13:00 PM EDT Health Care) Note that this vaccine 06/24/2017 completed [facility] name has changed. See 10:57:00 AM EST Ce nter also Td (adult). It is not adsorbed. Medications Medication Brand Start Product Dose Route [facility] Indications Reaction Description Data Name Date Form Instructions Instructions Source(s) 200 ACTUAT Ventol 2.0 active Ventolin HFA eCW3 Albuterol in HFA 2018 {puff 108 (90 ([facility] son 0.09 108 12:00: s_as_ Base) [place] MG/ACTUAT (90 00 AM neede MCG/ACT Healt h Metered Base) EST d} Care) Dose MCG/AC Inhaler T [Ventolin] Ventolin HFA 108 (90 Base) MCG/ACT 200 ACTUAT Ventol 2.0 active Ventolin HFA eCW3 Albuterol in HFA 2018 {puff 108 (90 ([facility] son 0.09 108 12:00: s_as_ Base) [place] MG/ACTUAT (90 00 AM neede MCG/ACT Healt h Metered Base) EST d} Care) Dose MCG/AC Inhaler T [Ventolin] Ventolin HFA 108 (90 Base) MCG/ACT Flonase Flonas 1.0 active Flonase eCW 3 Allergy e 2018 {spra Allergy ([place] Relief 50 Allerg 12:00: y_in_ Relief 50 [place] MCG/ACT y 00 AM each_ MCG/ACT Health Relief EDT nostr Care) 50 il} MCG/AC T Miconazole UNK 1.0 suspend Miconazol e 2 eCW3 2 % 2018 {appl ed % ([place] 12:00: icati [place] 00 AM on_to Health EDT _affe Care) cted_ area} Acetaminoph Acetam .0 suspend Acetam inophe eCW3 en 500 MG inophe 2019 {tabl ed n 500 mg ([facility] Oral Tablet n 500 12:00: et_as Rive r Acetaminoph mg 00 AM _need Health en 500 mg EDT ed} Care) Acetaminoph Acetam .0 active Acetami nophe eCW3 en 500 MG inophe 2018 {tabl n 500 mg ([facility] Oral Tablet n 500 12:00: et_as Rive r Acetaminoph mg 00 AM _need Health en 500 mg EDT ed} Care) Iron UNK 05/12/ suspend Iron eCW3 2016 ed ([facility] 12:00: [place] 00 AM Health EDT Care) Iron UNK 05/12/ suspend Iron eCW3 2016 ed ([place] 12:00: [place] 00 AM Health EDT Care) UNK 01/07/ suspend eC W3 Vitamins 2016 ed Vitamins ([place] 12:00: [place] 00 AM Health EDT Care) UNK 01/07/ suspend eC W3 Vitamins 2016 ed Vitamins ([place] 12:00: [place] 00 AM Health EDT Care) UNK 01/07/ suspend eC W3 Vitamins 2016 ed Vitamins ([place] 12:00: [place] 00 AM Health EDT Care) UNK 01/07/ suspend eC W3 Vitamins 2016 ed Vitamins ([place] 12:00: [place] 00 AM Health EDT Care) Mirena UNK active Mirena eCW3 ([facility]) lamotrigine Lamotr suspend Lamotrig ine eCW3 100 MG Oral igine ed 100 MG ([place] Tablet 100 MG [place] Lamotrigine Health 100 MG Care) lamotrigine Lamotr suspend Lamotrig ine eCW3 100 MG Oral igine ed 100 MG ([place] Tablet 100 MG [place] Lamotrigine Health 100 MG Care) quetiapine Quetia suspend Quetiapin e eCW3 200 MG Oral pine ed Fumarate 200 ([place] Tablet Fumara MG [place] Quetiapine te 200 Health Fumarate MG Care) 200 MG quetiapine Quetia suspend Quetiapin e eCW3 200 MG Oral pine ed Fumarate 200 ([place] Tablet Fumara MG [place] Quetiapine te 200 Health Fumarate MG Care) 200 MG Hydroxyzine HydrOX suspend HydrOXYz ine eCW3 Hydrochlori Yzine ed HCl 50 MG (H udson de 50 MG HCl 50 [place] Oral Tablet MG Health HydrOXYzine Care) HCl 50 MG Ibuprofen ibupro 1 complet [facility] 800 MG Oral fen ed Lakshmi Tablet 800 mg Medical ibuprofen Tablet Center 800 mg , Tablet, Ordere Ordered By: d By: Jarvis Luna MDDirection , s: 1 tablet MDDire oral every ctions eight hours : 1 PRN tablet pain-modera oral te every eight hours PRN pain-m oderat e Penicillin penici 1 complet Rod t V Potassium llin V ed Ashish s 500 MG Oral potass Medica l Tablet ium Center penicillin 500 mg V potassium Tablet 500 mg , Tablet, Ordere Ordered By: d By: Jarvis Luna MDDirection , s: 1 tablet MDDire oral every ctions eight hours : 1 tablet oral every eight hours lamotrigine Lamotr suspend Lamotrig ine eCW3 100 MG Oral igine ed 100 MG ([place] Tablet 100 MG [place] Lamotrigine Health 100 MG Care) Mirena UNK active Mirena eCW3 ([facility] Care) lamotrigine Lamotr suspend Lamotrig ine eCW3 100 MG Oral igine ed 100 MG ([place] Tablet 100 MG [place] Lamotrigine Health 100 MG Care) Acetaminoph Acetam 2.0 suspend Acetamin ophe eCW3 en 500 MG inophe {tabl ed n 500 mg ([facility] d[facility] Oral Tablet n 500 et_as [place] Acetaminoph mg _need Health en 500 mg ed} Care) benzonatate benzon 1 complet Anand nt 100 MG Oral atate ed Lakshmi Capsule 100 mg Medical benzonatate Capsul Center 100 mg e, Capsule, Ordere Ordered By: d By: Camelia Sagastume ns: 1 re, capsule FNPDir oral three ection times a day s: 1 PRN cough capsul e oral three times a day PRN cough Ibuprofen ibupro 1 complet [facility] 600 MG Oral fen ed Lakshmi Tablet 600 mg Medical ibuprofen Tablet Center 600 mg Direct TabletDirec ions: tions: 1 1 tablet oral tablet every six oral hours PRN every pain six hours PRN pain Metoclopram metocl 1 complet Anand nt lisa 10 MG oprami ed Lakshmi Oral Tablet de HCl Medica l metoclopram 10 mg Center lisa HCl 10 Tablet mg Tablet, , Ordered By: Adeline Gaona d By: Candelaria Mireles FNPDirectio Camelia ns: 1 McInty tablet oral re, three times FNPDir a day ection before s: 1 meals PRN tablet nausea or oral vomiting three times a day before meals PRN nausea or vomiti ng quetiapine Quetia suspend Quetiapin e eCW3 200 MG Oral pine ed Fumarate 200 ([place] Tablet Fumara MG [place] Quetiapine te 200 Health Fumarate MG Care) 200 MG Mirena UNK active Mirena eCW3 ([facility]) Hydroxyzine HydrOX suspend HydrOXYz ine eCW3 Hydrochlori Yzine ed HCl 50 MG (H udson de 50 MG HCl 50 [place] Oral Tablet MG Health HydrOXYzine Care) HCl 50 MG Hydroxyzine HydrOX suspend HydrOXYz ine eCW3 Hydrochlori Yzine ed HCl 50 MG (H udson de 50 MG HCl 50 [place] Oral Tablet MG Health HydrOXYzine Care) HCl 50 MG Mirena UNK active Mirena eCW3 ([facility]) Acetaminoph Acetam 2.0 suspend Acetamin ophe eCW3 en 500 MG inophe {tabl ed n 500 mg (Hu d[facility] Oral Tablet n 500 et_as [place] Acetaminoph mg _need Health en 500 mg ed} Care) Hydroxyzine HydrOX suspend HydrOXYz ine eCW3 Hydrochlori Yzine ed HCl 50 MG (H udson de 50 MG HCl 50 [place] Oral Tablet MG Health HydrOXYzine Care) HCl 50 MG Insurance Providers Payer name Policy type Policy ID Covered Covered republican's Policy P luis miguel / Coverage republican ID relationship to [place] Inf ormation type littlejohn TRINY W [id number] 200 TRINY [id number] SP [id number] 200 HEALTH NON CAP TRINY W [id number] 200 [id number] MEDICAID [id number] [id number] Problems, Conditions, and Diagnoses Code Display Name Description Problem Type Effective Data Dates Source(s) Z30.431 IUD check up IUD check up Problem 09/11/2019 eCW3 ([place] 12:00:00 AM [facility] EST Care) E66.01 Morbid obesity Morbid obesity Problem 06/13/2019 eCW3 ( [place] 12:00:00 AM [facility] EDT Care) F31.9 Bipolar affective Bipolar affective Problem 06/13/2019 eCW3 ([place] disorder, remission disorder, 12:00:00 AM [facility] status unspecified remission status EDT Care) unspecified F33.1 Moderate recurrent Major depressive Problem 04/11/2019 eCW3 ([place] major depression disorder, 12:00:00 AM [facility] ealt recurrent EDT Care) episode, moderate degree F33.1 Moderate recurrent Major depressive Problem 04/11/2019 eCW3 ([place] major depression disorder, 12:00:00 AM [facility] ealth recurrent EDT Care) episode, moderate degree F81.9 Learning disabilities Learning Problem 03/13/2019 eCW 3 ([place] disabilities 12:00:00 AM [facility] EDT Care) F81.9 Learning disabilities Learning Problem 03/13/2019 eCW 3 ([place] disabilities 12:00:00 AM [facility] EDT Care) J31.0 Rhinitis, unspecified Rhinitis, Problem 03/13/2019 eCW 3 ([facility] type unspecified type 12:00:00 AM [place] ealt EDT Care) Z68.42 BMI 45.0-49.9, adult BMI 45.0-49.9, Problem 11/08/2018 eCW3 ([place] adult 12:00:00 AM [facility] EDT Care) Z68.42 BMI 45.0-49.9, adult BMI 45.0-49.9, Problem 11/08/2018 eCW3 ([place] adult 12:00:00 AM [facility] EDT Care) B96.89 Other specified Other specified Problem 06/20/2018 eCW3 ([place] bacterial agents as bacterial agents 12:00:00 A [facility] the cause of diseases as the cause of EST Care) classified elsewhere diseases classified elsewhere N76.0 Acute vaginitis Acute vaginitis Problem 06/20/2018 eCW3 ([place] 12:00:00 AM [facility] EST Care) N94.2 Vaginismus Vaginismus Problem 06/20/2018 eCW3 ([place] 12:00:00 AM [facility] EST Care) N76.0 Acute vaginitis Acute vaginitis Problem 06/20/2018 eCW3 ([place] 12:00:00 AM [facility] EST Care) N94.2 Vaginismus Vaginismus Problem 06/20/2018 eCW3 ([place] 12:00:00 AM [facility] EST Care) B96.89 Other specified Other specified Problem 06/20/2018 eCW3 ([place] bacterial agents as bacterial agents 12:00:00 A [facility] the cause of diseases as the cause of EST Care) classified elsewhere diseases classified elsewhere F32.9 Depression, Depression, Problem 03/29/2018 eCW3 ([place] unspecified unspecified 12:00:00 AM [facility] depression type depression type EDT Care ) F32.9 Depression, Depression, Problem 03/29/2018 eCW3 ([place] unspecified unspecified 12:00:00 AM [facility] depression type depression type EDT Care ) N92.6 Irregular bleeding Irregular Problem 02/03/2018 eCW3 ( [place] bleeding 12:00:00 AM [facility] EDT Care) N92.6 Irregular bleeding Irregular Problem 02/03/2018 eCW3 ( [place] bleeding 12:00:00 AM [facility] EDT Care) Z68.41 BMI 40.0-44.9, adult BMI 40.0-44.9, Problem 12/19/2017 eCW3 ([place] adult 12:00:00 AM [facility] EDT Care) Z68.41 BMI 40.0-44.9, adult BMI 40.0-44.9, Problem 12/19/2017 eCW3 ([place] adult 12:00:00 AM [facility] EDT Care) Z30.431 IUD check up IUD check up Problem 03/29/2017 eCW3 ([place] 12:00:00 AM [facility] EDT Care) R87.612 LGSIL on Pap smear of LGSIL on Pap Problem 03/29/2017 e CW3 ([place] cervix smear of cervix 12:00:00 AM [facility] EDT Care) R87.612 LGSIL on Pap smear of LGSIL on Pap Problem 03/29/2017 e CW3 ([place] cervix smear of cervix 12:00:00 AM [facility] EDT Care) Z30.431 IUD check up IUD check up Problem 03/29/2017 eCW3 ([place] 12:00:00 AM [facility] EDT Care) F17.210 Nicotine dependence, NICOTINE Diagnosis 04/29/2020 [facility] cigarettes, DEPENDENCE, 08:53:00 PM Medical uncomplicated CIGARETTES, EDT Center UNCOMPLICATED K08.89 Other specified OTHER SPECIFIED Diagnosis 04/29/2020 [facility] disorders of teeth DISORDERS OF 08:53:00 PM Med ical and supporting TEETH AND EDT Center structures SUPPORTING STRUCTURES K02.9 Dental caries, DENTAL CARIES, Diagnosis 04/29/2020 [facility] unspecified UNSPECIFIED 08:53:00 PM Medical EDT Center K13.79 Other lesions of oral OTHER LESIONS OF Diagnosis 04/29/20 20 [facility] mucosa ORAL MUCOSA 08:53:00 PM Medical EDT Center J11.2 Influenza due to INFLUENZA DUE TO Diagnosis 08/30/2019 [facility] unidentified UNIDENTIFIED 07:04:00 PM Medical influenza virus with INFLUENZA VIRUS W EST Center gastrointestinal GI MANIFEST manifestations J40 Bronchitis, not BRONCHITIS, NOT Diagnosis 08/30/2019 [facility] specified as acute or SPECIFIED 07:04:00 PM Medical chronic ACUTE OR CHRONIC EST Center J11.1 Influenza due to FLU DUE TO Diagnosis 08/30/2019 [facility] unidentified UNIDENTIFIED 07:04:00 PM Medical influenza virus with INFLUENZA VIRUS W EST Center other respiratory OTH RESP MANIFEST manifestations M25.562 Pain in left knee PAIN IN LEFT KNEE Diagnosis 12/29/2018 [facility] 07:04:00 AM Medical EDT Center M25.569 Pain in unspecified PAIN IN Diagnosis 12/29/2018 [facility] knee UNSPECIFIED KNEE 07:04:00 AM Medical EDT Center Social History Code Duration Value Status Description Data Source(s ) Smoking 04/29/2020 Daily Smoker completed Daily Smoker [facility] 10:26:00 PM EDT Medical C enter Smoking 04/29/2020 Daily Smoker completed Daily Smoker [facility] 09:47:00 PM EDT Medical C enter Smoking 04/29/2020 Daily Smoker completed Daily Smoker [facility] 09:03:00 PM EDT Medical C enter Smoking 10/24/2019 Current Smoker completed Current Smoker eCW3 ( [place] 12:00:00 AM EDT Health Ca re) Smoking 10/24/2019 Current Smoker completed Current Smoker eCW3 ( [place] 12:00:00 AM EDT Health Ca re) Smoking 08/30/2019 Daily Smoker completed Daily Smoker [facility] 07:26:00 PM EST Medical C enter Smoking 08/30/2019 Daily Smoker completed Daily Smoker [facility] 07:26:00 PM EST Medical C enter Smoking 08/30/2019 Daily Smoker completed Daily Smoker [facility] 07:22:00 PM EST Medical C enter Smoking 03/14/2019 Current Smoker completed Current Smoker eCW3 ( [facility] [place] 12:00:00 AM EDT Health Ca re) Smoking 12/29/2018 Daily Smoker completed Daily Smoker [facility] 07:37:00 AM EDT Medical C enter Smoking 12/29/2018 Daily Smoker completed Daily Smoker [facility] 07:15:00 AM EDT Medical C enter Smoking 11/08/2018 Never Smoker completed Never Smoker eCW3 ([facility] [place] 12:00:00 AM EDT Health Ga re) Current Smoker completed Current Smoker eCW3 ( [facility]) Current Smoker completed Current Smoker eCW3 ( [facility]) Current Smoker completed Current Smoker eCW3 ( [facility]) Never Smoker completed Never Smoker eCW3 ([facility]) Vital Signs ID Date Data Source UNK Name Value Range Interpretation Code Description Data Source(s) Body temperature 36.314463 36.321987 [facility] Respiratory rate 18 /min 18 /min [facility] Oxygen saturation 99 % 99 % [facility] Arterial blood [facility] by Pulse oximetry Heart rate 83 /min 83 /min [facility] Diastolic blood 73 mm[Hg] 73 mm[Hg] [facility] pressure [facility] Systolic blood 129 mm[Hg] 129 mm[Hg] [facility] pressure Medical Center Body temperature 36.851627 36.118948 [facility] Respiratory rate 19 /min 19 /min [facility] Oxygen saturation 98 % 98 % [facility] osephs in [facility] by Pulse oximetry Heart rate 64 /min 64 /min [facility] Diastolic blood 80 mm[Hg] 80 mm[Hg] [facility] Systolic blood 150 mm[Hg] 150 mm[Hg] [facility] pressure Medical Center Diastolic blood 82 mm[Hg] 82 mm[Hg] eCW3 ([facility]) Systolic blood 121 mm[Hg] 121 mm[Hg] eCW3 ([facility]) Body temperature 98.3 [degF] 98.3 [degF] eCW3 ( [facility]) Heart rate 20 /min 20 /min eCW3 ([facility]) Body weight 250 [lb_av] 250 [lb_av] eCW3 ([facility]) Body height 62 [in_i] 62 [in_i] eCW3 ([facility]) Diastolic blood 62 mm[Hg] 62 mm[Hg] eCW3 ([facility]) Systolic blood 104 mm[Hg] 104 mm[Hg] eCW3 ([facility]) Body temperature 98.2 [degF] 98.2 [degF] eCW3 ( [facility]) Heart rate 20 /min 20 /min eCW3 ([facility]) Body mass index 45.54 kg/m2 45.54 kg/m2 eCW3 ([facility] (BMI) [Ratio] [facility]) Body weight 249 [lb_av] 249 [lb_av] eCW3 ([facility]) Body height 62.0 [in_i] 62.0 [in_i] eCW3 ([facility]) Body temperature 36.291859 36.208476 [facility] Respiratory rate 18 /min 18 /min [facility] Oxygen saturation 99 % 99 % [facility] in Arterial blood [facility] by Pulse oximetry Heart rate 70 /min 70 /min [facility] Diastolic blood 70 mm[Hg] 70 mm[Hg] [facility] pressure [facility] Systolic blood 128 mm[Hg] 128 mm[Hg] [facility] pressure Medical Center Body weight 220.569130 220.187695 kg [facility] Measured kg Medical Center Body temperature 36.534673 36.434391 [facility] Respiratory rate 18 /min 18 /min [facility] Oxygen saturation 97 % 97 % [facility] in Arterial blood Medical Center by Pulse oximetry Heart rate 75 /min 75 /min [facility] Diastolic blood 75 mm[Hg] 75 mm[Hg] [facility] pressure Medical Center Systolic blood 133 mm[Hg] 133 mm[Hg] [facility] pressure Medical Center Diastolic blood 80 mm[Hg] 80 mm[Hg] eCW3 ([facility]) Systolic blood 126 mm[Hg] 126 mm[Hg] eCW3 ([facility]) Body temperature 98.6 [degF] 98.6 [degF] eCW3 ( [facility]) Heart rate 18 /min 18 /min eCW3 ([facility]) Body mass index 46.64 kg/m2 46.64 kg/m2 eCW3 (H shaguftaneptali (BMI) [Ratio] [facility]) Body weight 255.0 255.0 [lb_av] eCW3 ([facility] [lb_av] [facility]) Body height 62.0 [in_i] 62.0 [in_i] eCW3 ([facility]) Diastolic blood 73 mm[Hg] 73 mm[Hg] eCW3 ([facility]) Systolic blood 110 mm[Hg] 110 mm[Hg] eCW3 ([facility]) Body temperature 98.9 [degF] 98.9 [degF] eCW3 ( [facility]) Heart rate 20 /min 20 /min eCW3 ([facility]) Body mass index 43.26 kg/m2 43.26 kg/m2 eCW3 (H shaguftaneptali (BMI) [Ratio] [facility]) Body weight 260 [lb_av] 260 [lb_av] eCW3 ([facility]) Body height 65 [in_i] 65 [in_i] eCW3 ([facility]) Patient Treatment Plan of Care Planned Activity Planned Date Details Description Data Source (s) Acetaminophen 500 MG Oral 11/08/2018 12:00:00 eCW3 ([facility]) Penicillin V Potassium 500 S aint Lakshmi MG Oral Tablet [facility] Ibuprofen 800 MG Oral [facility] Metoclopramide 10 MG Oral [facility] benzonatate 100 MG Oral [facility] Ibuprofen 600 MG Oral [facility]
[2020-05-29 12:23] VITALS: BMI 49.4
--- OUTSIDE RECORDS SUMMARY | 2020-05-30 04:51 | XMS ---
:1990 Author Organization [facility] Care Team Providers Name Role Phone ED STAFF PHYSICIAN Unavailable Unavailable LEVI MORRIS W Unavailable Unavailable ED STAFF PHYSICIAN, STAFF Unavailable Unavailable ZUNASSIGNED Unavailable Unavailable DORIS DOWNEY Unavailable Unavailable Re-disclosure Warning The records that [...] is protected by Article 27-F of the [facility] Public Health law. If you continue you may haveaccess to information: Regarding HIV / AIDS; Provided by facilities licensed or operated by the [facility] Office of Mental Health; or Provided by the [facility] Office for People With Developmental Disabilities. If such information is present, then the following [facility] mandated warning applies: This information has been [...] law may result in a fine or halfway sentence or both. A general authorization for the release of medical or other information is NOT sufficient authorization for further disclosure. Encounters Encounter Providers Location Date Indications Data Source(s ) Emergency Attender: ED STAFF H 04/29/2020 [facility] PHYSICIANAttender: 08:53:00 PM Medic al Center STAFF ED STAFF EDT - PHYSICIANAdmitter: ED 04/29/2020 STAFF 10:41:00 PM PHYSICIANReferrer: EDT ZUNASSIGNED Patient discharged. Emergency Attender: DORIS Red[place] 08/30/2019 07:04 :00 PM [facility] CAttender: LEVI MORRIS EST - 08/30/2019 Medical [facility] WAttender: STAFF ED STAFF 11:54:00 PM EST PHYSICIANAdmitter: DORIS Jara Patient discharged. Outpatient [facility] Care 06/13/2019 12:00:00 AM eCW3 ([facility] A28 EDT - 06/13/2019 12:00:00 Health Care) AM EDT Immunizations Vaccine Date Status Description Data Source(s) New in 2011. IIV4 04/29/2020 01:24:00 completed eC W3 ([facility]) New in 2011. IIV4 06/13/2019 12:58:00 completed eC W3 ([facility]) Medications Medication Brand Start Product Dose Route Administrative Pharmacy [facility] Indications Reaction Description Data Name Date Form Instructions Instructions Source(s) Metronidazo Flagyl 1.0 active Flagyl 500 eCW3 le 500 MG 500 MG 2019 {tabl MG ([facility] Oral Tablet 12:00: et} [facility] [Flagyl] 00 AM Health Flagyl 500 EDT Care) MG 200 ACTUAT Ventol 2.0 active Ventolin HFA eCW3 Albuterol in HFA 2019 {puff 108 (90 (Hud son 0.09 108 12:00: s_as_ Base) [facility] MG/ACTUAT (90 00 AM neede MCG/ACT Healt h Metered Base) EST d} Care) Dose MCG/AC Inhaler T [Ventolin] Ventolin HFA 108 (90 Base) MCG/ACT 200 ACTUAT Ventol 2.0 active Ventolin HFA eCW3 Albuterol in HFA 2019 {puff 108 (90 (Hud son 0.09 108 12:00: s_as_ Base) [facility] MG/ACTUAT (90 00 AM neede MCG/ACT Healt h Metered Base) EST d} Care) Dose MCG/AC Inhaler T [Ventolin] Ventolin HFA 108 (90 Base) MCG/ACT 200 ACTUAT Ventol 2.0 active Ventolin HFA eCW3 Albuterol in HFA 2019 {puff 108 (90 (Hud son 0.09 108 12:00: s_as_ Base) [facility] MG/ACTUAT (90 00 AM neede MCG/ACT Healt h Metered Base) EST d} Care) Dose MCG/AC Inhaler T [Ventolin] Ventolin HFA 108 (90 Base) MCG/ACT Miconazole UNK .0 suspend Miconazol e 2 eCW3 2 % 2018 {appl ed % ([facility] 12:00: icati [facility] 00 AM on_to Health EDT _affe Care) cted_ area} Insurance Providers Payer name Policy type Policy ID Covered Covered democrat's Policy P luis mgiuel / Coverage democrat ID relationship to Scott Inf ormation type scott TRINY [id number] SP [id number] 200 HEALTH NON CAP TRINY W [id number] 01 [id number] 200 TRINY W [id number] 01 [id number] 200 MEDICAID [id number] MEDICAID [id number] SP [id number] Problems, Conditions, and Diagnoses Code Display Name Description Problem Type Effective Data Dates Source(s) Z64.1 Multiparity Multiparity Problem 05/20/2020 eCW3 ([facility] 12:00:00 AM [facility] EDT Care) B96.89 Other specified Other specified Problem 05/20/2020 eCW3 ([facility] bacterial agents as bacterial agents 12:00:00 A M [facility] the cause of diseases as the cause of EDT Care) classified elsewhere diseases classified elsewhere N76.0 Acute vaginitis Acute vaginitis Problem 05/20/2020 eCW3 ([facility] 12:00:00 AM [facility] EDT Care) Z30.431 IUD check up IUD check up Problem 09/11/2019 eCW3 ([facility] 12:00:00 AM [facility] EST Care) Z30.431 IUD check up IUD check up Problem 09/11/2019 eCW3 ([facility] 12:00:00 AM [facility] EST Care) F31.9 Bipolar affective Bipolar affective Problem 06/13/2019 eCW3 ([facility] disorder, remission disorder, 12:00:00 AM [facility] status unspecified remission status EDT Care) unspecified E66.01 Morbid obesity Morbid obesity Problem 06/13/2019 eCW3 ( [facility] 12:00:00 AM [facility] EDT Care) F31.9 Bipolar affective Bipolar affective Problem 06/13/2019 eCW3 ([facility] disorder, remission disorder, 12:00:00 AM [facility] status unspecified remission status EDT Care) unspecified F33.1 Moderate recurrent Major depressive Problem 04/11/2019 eCW3 ([facility] major depression disorder, 12:00:00 AM [facility] recurrent EDT Care) episode, moderate degree F33.1 Moderate recurrent Major depressive Problem 04/11/2019 eCW3 ([facility] major depression disorder, 12:00:00 AM [facility] recurrent EDT Care) episode, moderate degree F33.1 Moderate recurrent Major depressive Problem 04/11/2019 eCW3 ([facility] major depression disorder, 12:00:00 AM [facility] recurrent EDT Care) episode, moderate degree F17.210 Nicotine dependence, NICOTINE Diagnosis 04/29/2020 [facility] [...] Center other respiratory OTH RESP MANIFEST manifestations Results ID Date Data Source [id number] 05/26/2020 02:00:00 PM EDT [facility] Name Value Range Interpretation Description Data Sup porting Code Source(s) Document(s ) SARS [facility] coronavirus 2 RNA This lab was ordered by [facility] and reported by [facility]. Procedure Social History Code Duration Value Status Description Data Source(s ) Smoking 05/20/2020 Current Smoker completed Current Smoker eCW3 ( [facility] 12:00:00 AM EDT Health Ca re) Smoking 04/29/2020 Daily Smoker completed Daily Smoker [...] phs 07:22:00 PM EST Medical C enter Vital Signs ID Date Data Source UNK Name Value Range Interpretation Code Description Data Source(s) Body temperature 36.426072 36.468581 Sof[facility] Respiratory rate 18 /min 18 /min [facility] Oxygen saturation 99 % 99 % [facility] in Arterial blood [facility] by Pulse oximetry Heart rate 83 /min 83 /min [facility] Diastolic blood 73 mm[Hg] 73 mm[Hg] [facility] Systolic blood 129 mm[Hg] 129 mm[Hg] [facility] Body temperature 36.836285 36.513163 Sofya [facility] Respiratory rate 19 /min 19 /min [facility] Oxygen saturation 98 % 98 % [facility] Arterial [facility] by Pulse oximetry Heart rate 64 /min 64 /min [facility] Diastolic blood 80 mm[Hg] 80 mm[Hg] [facility] Systolic blood 150 mm[Hg] 150 mm[Hg] [facility] Diastolic blood 71 mm[Hg] 71 mm[Hg] eCW3 ([facility]) Systolic blood 107 mm[Hg] 107 mm[Hg] eCW3 ([facility]) Body temperature 98.5 [degF] 98.5 [degF] eCW3 ( [facility]) Heart rate 18 /min 18 /min eCW3 ([facility]) Body mass index 46.28 kg/m2 46.28 kg/m2 eCW3 ([facility] (BMI) [Ratio] [facility]) Body weight 249.0 249.0 [lb_av] eCW3 ([facility] on [lb_av] [facility]) Body height 61.5 [in_i] 61.5 [in_i] eCW3 ([facility]) Patient Treatment Plan of Care Planned Activity Planned Date Details Description Data Source (s) Metronidazole 500 MG Oral 05/20/2020 12:00:00 eCW3 ([facility] Tablet [Flagyl] [facility])
[2020-05-30] MEDS ORDERED: SUCCINYLCHOLINE CHLORIDE 200 MG/10 ML SYRINGE ONE (07:50)
[2020-05-30] MEDS ORDERED: MIDAZOLAM HCL 2 MG/2 ML SINGLE DOSE VIAL ONE (07:50)
[2020-05-30] MEDS ORDERED: PROPOFOL 20 ML ONE ×2 (07:50→09:36)
--- NOTE | 2020-05-30 08:13 | HP ---
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 h/o recurrent bv infection . last treated with po flagyl 2 wks ago h/o abn pap smear 01/2016 (LSIL)Colposcopy was done . Sbsequent pap in 03/29/2017 & 05/06/18 nilm h/o chlamydia & herpe infection in past History Source: Patient, Medical Record Limitations to Obtaining History: No Limitations - Past Medical History SCHOOL TRAFFIC GUARD: No: Migraine, Seizure, Syncope Cardiovascular: No: HTN, Murmur Pulmonary: No: Asthma Gastrointestinal: Yes: Other (none known) Hepatobiliary: Yes: Other (declines) Renal/: No: UTI Reproductive: Yes: Other (h/o abn pap in 01/2016 & 05/06/18 pap NILM) ...: 1 ...Para: 1 (G1 07/27/2016 c/section at [facility] ) ...Term: 1 Heme/Onc: No: Sickle Cell Trait Infectious Disease: Yes: STD's (h/o chlamydia & herpes in past) Psych: Yes: Bipolar (currently not on any meds ,), Depression (pt declines , presntly she is ok) Musculoskeletal: No: Bursitis, Chronic low back pain, Hemiparesis, Hemiplegia, Osteoarthritis, Paraplegia, Other Rheumatology: No: Fibromyalgia, Gout, Lupus, Rheumatoid Arthritis, Sarcoidosis, Vasculitis, Other ENT: No: Allergic Rhinitis, Sinusitis, Other Endocrine: No: [place]'s Disease, Chepe's Disease, Diabetes Insipidus, Diabetes Mellitus, Hyperparathyroidism, Hyperthyroidism, Hypothyroidism, Osteopenia, SIADH, Other - Past Surgical History Past Surgical History: Yes: (07/27/2016) Hx Myomectomy: No Hx Transabdominal Cerclage: No Additional Surgical History: h/o foot surgery in 2016. 09/22/18 I&D thigh abscess - Smoking History Smoking history: Current every day smoker Have you smoked in the past 12 months: No Aproximately how many cigarettes per day: 20 - Alcohol/Substance Use Hx Alcohol Use: No History of Substance Use: reports: Marijuana - Social History History of Recent Travel: No Home Medications - Allergies Allergies/Adverse Reactions: Allergies Allergy/AdvReac Type Severity Reaction Status Date / Time No Known Allergies Allergy Verified 05/30/20 06:27 - Home Medications Home Medications: Ambulatory Orders Acetaminophen [Tylenol .Extra-Strength -] 500 mg PO Q6H PRN #60 tablet 05/30/20 Ibuprofen [Motrin -] 600 mg PO Q6H PRN #30 tablet 05/30/20 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: Vital Signs Temperature 97.3 F L 05/30/20 06:28 Pulse Rate 83 05/30/20 06:28 Respiratory Rate 14 05/30/20 06:28 Blood Pressure 137/95 05/30/20 06:28 O2 Sat by Pulse Oximetry (%) 99 05/30/20 06:28 Constitutional: Yes: Well Nourished, Obese Eyes: Yes: WNL HENT: Yes: WNL Neck: Yes: WNL Cardiovascular: Yes: WNL Respiratory: Yes: WNL Gastrointestinal: Yes: WNL ...Rectal Exam: Yes: Deferred Renal/: Yes: WNL Pelvis: Yes: WNL External Genitalia: Yes: Normal Internal Exam Deferred: No Vaginal Exam: Yes: Normal Cervix: Yes: Normal, Other (iud string visualised) Uterus: Yes: Normal, Freely Moveable, Anteverted, Firm Adnexa: Normal: Bilateral, Not Palpable: Bilateral Breast(s): Yes: WNL. No: Mass Musculoskeletal: Yes: WNL Extremities: Yes: WNL. No: Calf Tenderness Edema: No Integumentary: Yes: WNL, Incision (old pfannensteil scar), Other (eczema noted on inner side of rt thigh above knee joint) Neurological: Yes: WNL ...Motor Strength: WNL Psychiatric: Yes: WNL, Alert, Oriented Labs: Laboratory Tests 06/10/16 07/30/16 05/26/20 12:00 05:45 13:52 WBC RBC Hgb Hct MCV MCH MCHC RDW Plt Count MPV Absolute Neuts (auto) Neutrophils % Band Neutrophils 2.0 Lymphocytes % Monocytes % Eosinophils % Basophils % Nucleated RBC % PT with INR INR Sodium Potassium Chloride Carbon Dioxide Anion Gap BUN Creatinine Est GFR (CKD-EPI)AfAm Est GFR (CKD-EPI)NonAf Random Glucose Total Bilirubin AST ALT Alkaline Phosphatase Total Protein Albumin Beta HCG, Quant Urine Color Yellow Urine Appearance Clear Urine pH 5.5 Ur Specific [place] 1.027 Urine Protein Negative Urine Glucose (UA) Negative Urine Ketones Negative Urine Blood Trace Urine RBC 2 Urine Nitrite Negative Urine WBC 2 Urine Bilirubin Negative Urine Urobilinogen 0.2 Ur Leukocyte Esterase Negative Urine WBC (Auto) 9 Urine RBC (Auto) 66 Urine Casts (Auto) 4 U Epithel Cells (Auto) >36 Urine Bacteria (Auto) 1781 COVID-19 (MANI) 05/26/20 05/26/20 05/26/20 13:52 13:52 13:52 WBC 8.6 RBC 4.21 Hgb 12.8 Hct 37.3 MCV 88.7 MCH 30.3 MCHC 34.2 RDW 12.9 Plt Count 282 MPV 9.1 Absolute Neuts (auto) 5.4 Neutrophils % 62.6 Band Neutrophils Lymphocytes % 26.4 D Monocytes % 9.7 Eosinophils % 1.1 D Basophils % 0.2 Nucleated RBC % 0 PT with INR 14.10 H INR 1.20 H Sodium 138 Potassium 4.2 Chloride 107 Carbon Dioxide 25 Anion Gap 7 L BUN 9.8 Creatinine 0.7 Est GFR (CKD-EPI)AfAm 136.66 Est GFR (CKD-EPI)NonAf 117.91 Random Glucose 71 L Total Bilirubin 0.3 AST 22 ALT 31 Alkaline Phosphatase 68 Total Protein 7.6 Albumin 3.5 Beta HCG, Quant < 1.0 Urine Color Urine Appearance Urine pH Ur Specific [place] Urine Protein Urine Glucose (UA) Urine Ketones Urine Blood Urine RBC Urine Nitrite Urine WBC Urine Bilirubin Urine Urobilinogen Ur Leukocyte Esterase Urine WBC (Auto) Urine RBC (Auto) Urine Casts (Auto) U Epithel Cells (Auto) Urine Bacteria (Auto) COVID-19 (MANI) 05/26/20 14:00 WBC RBC Hgb Hct MCV MCH MCHC RDW Plt Count MPV Absolute Neuts (auto) Neutrophils % Band Neutrophils Lymphocytes % Monocytes % Eosinophils % Basophils % Nucleated RBC % PT with INR INR Sodium Potassium Chloride Carbon Dioxide Anion Gap BUN Creatinine Est GFR (CKD-EPI)AfAm Est GFR (CKD-EPI)NonAf Random Glucose Total Bilirubin AST ALT Alkaline Phosphatase Total Protein Albumin Beta HCG, Quant Urine Color Urine Appearance Urine pH Ur Specific [place] Urine Protein Urine Glucose (UA) Urine Ketones Urine Blood Urine RBC Urine Nitrite Urine WBC Urine Bilirubin Urine Urobilinogen Ur Leukocyte Esterase Urine WBC (Auto) Urine RBC (Auto) Urine Casts (Auto) U Epithel Cells (Auto) Urine Bacteria (Auto) COVID-19 (MANI) Not detected Problem List - Problem (1) Multiparity Code(s): Z64.1 - PROBLEMS RELATED TO MULTIPARITY (2) IUD (intrauterine device) in place Code(s): Z97.5 - PRESENCE OF (INTRAUTERINE) CONTRACEPTIVE DEVICE Assessment/Plan plan removal od mirena & laproscopic BTL ( bilateral salpingectomy ) & necessary procedures pt is aware of r/b/a , she agrees with procedure
[2020-05-30] MEDS ORDERED: ceFAZolin SODIUM 1 GM VIAL IVPB ONE (08:15)
[2020-05-30] MEDS ORDERED: BUPIVACAINE HCL/PF 0.5% (5 MG/ML) 30 ML VIAL IJ ONE (08:19)
[2020-05-30] MEDS ORDERED: ROCURONIUM BROMIDE 100 MG/10 ML VIAL ONE (08:21)
[2020-05-30] MEDS ORDERED: NEOSTIGMINE METHYLSULFATE 0.5 MG/ML - 10 ML MDV ONE (09:14)
[2020-05-30] MEDS ORDERED: ACETAMINOPHEN 500 MG TABLET (FP) PO PRN (09:38)
[2020-05-30] MEDS ORDERED: IBUPROFEN 600 MG TABLET (FP) PO PRN (09:38)
[2020-05-30] MEDS ORDERED: oxyCODONE HCL 5 MG TABLET PO PRN (09:40)
[2020-05-30] MEDS ORDERED: LACTATED RINGERS SOLUTION 1,000 ML/1,000 ML INFUS.BAG IV SCH (09:45)
[2020-05-30] MEDS ORDERED: ALBUTEROL SO4 0.083% IH SOL 2.5 MG/3 ML VIAL.NEB. NEB ONE ×2 (09:57→10:09)
[2020-05-30] MEDS ORDERED: ONDANSETRON 4 MG/2 ML VIAL IVPUSH PRN (10:08)
[2020-05-30] MEDS ORDERED: LACTATED RINGERS SOLUTION 1,000 ML IV SCH (10:15)
--- NOTE | 2020-05-30 10:18 | OP ---
Operative Note - Note: Operative Date: 05/30/20 Pre-Operative Diagnosis: multiparity, iud in utero Operation: Removal of iud, laproscopic bilateral salpingectomy , left ovarian cystectomy Findings: ut normal , utero cx length 8cm both tubes & rt ovary roxanna lt ovary 3cm simple cyst seen , cyst opened & cyst wall removed, liht yellowish colo fluid drained both tubes clamped ligated cut with ligasur in entire length Surgeon: Nae Beltrán Anesthesiologist/MOBILE PHLEBOTOMIST: Renny Solis Anesthesia: General Specimens Removed: IUD. Rt tube. Left Tube. Left cyst wall Estimated Blood Loss (mls): 5 Drains, Volume Out (mls): 50 Operative Report Dictated: Yes
[2020-05-30] MEDS ORDERED: IBUPROFEN 800 MG/8 ML IJ IVPB ONE ×2 (10:23→10:37)
[2020-05-30] MEDS ORDERED: ACETAMINOPHEN INJECTION 100 ML IVPB ONE (10:23)
--- NOTE | 2020-05-30 10:29 | SURG ---
Surgery Credit Control Officer Note Credit Control Officer: Eddie Parsons PA-C Date of Service: 05/30/20 Diagnosis: multiparity, iud in utero, left ovarian cyst Procedure: Removal of iud, laproscopic bilateral salpingectomy, left ovarian cystectomy I was present for the entirety of the operative procedure. For further detail, please refer to operative report. Visit type - Case Type Case Type: Scheduled - New patient This patient is new to me today: Yes Date on this admission: 05/30/20
[2020-05-30] MEDS ORDERED: ACETAMINOPHEN 1000 MG/100 ML VIAL (NON FORMULARY) IVPB ONE (10:37)
[2020-05-30 10:58] VITALS: TEMP 98
[2020-05-30 12:02] VITALS: BP 100/48; PULSE 66
--- NOTE | 2020-05-31 09:57 | OP ---
DATE OF OPERATION: 05/30/2020 PREOPERATIVE DIAGNOSIS: Intrauterine device in utero, multiparity, voluntary sterilization. POSTOPERATIVE DIAGNOSIS: Intrauterine device in utero, multiparity, voluntary sterilization, and left ovarian cyst. OPERATION DONE: Removal of the intrauterine device, laparoscopic bilateral total salpingectomy, and left ovarian cystectomy. SURGEON: Nae Beltrán MD ENTERPRISE INFRASTRUCTURE ARCHITECT SURGEON: Eddie. ANESTHESIOLOGIST: Renny Solis MD ANESTHESIA: General. FINDINGS: This is a 29-year-old, 1, para 1-0-0-1, history of a C- section in the past, had an IUD, Mirena, inserted in 2017, and now she requests for voluntary sterilization. Patient is obese. Her BMI is 49.4. DESCRIPTION OF PROCEDURE: Patient is taken to the operating room table, and general anesthesia was given. She was placed in the lithotomy position. Abdomen, pubis, perineum, and vagina were painted with Betadine. It was draped in usual manner, and then pelvic examination was done. Uterus was anteverted. Cervix was posterior. Adnexa could not be palpated. Weighted speculum was put. Anterior lip of the cervix was held with a single-tooth tenaculum, and then with the packing forceps the IUD was removed. Uterocervical length was 8 cm. HUMI cannula was introduced into the uterine cavity. Tenaculum was removed and Lundy catheter was placed, and the speculum was removed too. Then gloves were changed. Patient was repositioned and proceeded with the laparoscopy. Veress needle was introduced through the umbilicus, and CO2 was insufflated into the peritoneal cavity. Small incision was made into the umbilicus, and 5-mm trocar and cannula were introduced into the peritoneal cavity. Intraperitoneal insertion was confirmed, then from the left side another 5-mm trocar and cannula were introduced after making the skin incision in avascular area. Similarly, from the right lower quadrant another incision was made, and a 5-mm trocar and cannula were introduced. The uterus was normal. Right side tube and ovary were normal. Left side tube was normal, and there was a 3-cm cyst that was noted. So first proceeded with the left side tubal removal. From the right side, the tube was grasped, and then from the left side the tube was held just below the _tubal edge in mesosalpinx with LigaSure, and the tube was then in serial stages was clamped, ligated, and cut till the cornual end was reached, and similar procedure was done on the right side, and then both the tubes were removed and the hemostasis was verified. Now the left ovarian cyst, with a LigaSure, incision was made on the upper most point of the cyst, and then the cyst was drained. It was clear fluid, and the cyst wall with a grasper was removed with traction and countertraction. Cyst wall was entirely removed. There was no bleeding. Irrigation was done, and then still some bleeding was noted from the left portal, which had stopped completely. suction , irrigation was done Then all instruments were removed. Before removal of the instruments hemostasis was confirmed once again, and in the incisions, Marcaine was infiltrated and 4-0 Biosyn intradermal suture taken, and the skin approximated with Dermabond. The HUMI cannula was removed. Lundy catheter was removed, and the patient was transferred to the recovery room in stable condition. Cecilia LEON/[id number] MTDD
--- NOTE | 2020-06-03 12:42 | PATH ---
Surgical Pathology Report Patient Name: PINKY NEWBERRY [facility]. Rec. #: [id number] /Age/Gender: 1990 (Age: 29) / F Account: [id number] Location: [facility] SURGICAL Taken: 05/30/2020 Received: 05/30/2020 Reported: 06/03/2020 Physicians: Nae Beltrán M.D. Specimen(s) Received A: REMOVED IUD B: LEFT CYST WALL C: LEFT FALLOPIAN TUBE D: RIGHT FALLOPIAN TUBE Clinical History Multiparity. History of Mirena since 09/2016 Final Diagnosis A. REMOVED IUD: CONSISTENT WITH IUD. GROSS ONLY. B. LEFT CYST WALL, EXCISION: BLOOD CLOT. NO LINING TISSUE PRESENT. C. LEFT FALLOPIAN TUBE, SALPINGECTOMY: PORTION OF FALLOPIAN TUBE WITH NO SIGNIFICANT PATHOLOGIC CHANGE. COMPLETE CROSS SECTION OF THE FALLOPIAN TUBE LUMEN IDENTIFIED. D. RIGHT FALLOPIAN TUBE, SALPINGECTOMY: PORTION OF FALLOPIAN TUBE WITH NO SIGNIFICANT PATHOLOGIC CHANGE. COMPLETE CROSS SECTION OF THE FALLOPIAN TUBE LUMEN IDENTIFIED Electronically Signed Aram Chatterjee M.D. Gross Description A. Received fresh labeled "removed IUD," is a 3 cm in length T-shaped device with attached string, consistent with an IUD. No soft tissue present. No sections are submitted, gross only. B. Received in formalin labeled "left cyst wall," is a 1.5 x 1.2 x 0.3 cm aggregate of kuhn red soft tissue fragments. The specimen is submitted in toto in one cassette. C. Received in formalin labeled "left fallopian tube," is a 4 cm in length portion of fallopian tube. The fimbriae are separately received within the same container. The outer surface is kuhn-pink and smooth. Sectioning reveals an unremarkable lumen. Legal Support Specialist sections are submitted in 2 cassettes as follows: 1-fimbria; 2-cross sections of fallopian tube. D. Received in formalin labeled "right fallopian tube," is a 4.5 cm in length fimbriated fallopian tube. The outer surface is kuhn-pink and smooth. Sectioning reveals an unremarkable lumen. Legal Support Specialist sections are submitted in 2 cassettes as follows: 1-fimbria; 2-cross sections of fallopian tube. DL/05/30/2020 saudi/05/30/2020
== END 2020-05-30 11:45 | disposition home or self-care (01) ==
LOC: JASU-SURG 04:49
PROVIDERS: ATTEND Obstetrics & Gynecology
PROC: 0UPD7HZ Removal of Contraceptive Device from Uterus and Cervix, Via Natural or Artificial Opening (ICD-10-PCS; 2020-05-30)
PROC: 0UB74ZZ Excision of Bilateral Fallopian Tubes, Percutaneous Endoscopic Approach (ICD-10-PCS; principal; 2020-05-30 08:00)
PROC: 0UB14ZZ Excision of Left Ovary, Percutaneous Endoscopic Approach (ICD-10-PCS; 2020-05-30 08:00)
DX: Z30.2 Encounter for sterilization (principal); Z30.432 Encounter for removal of intrauterine contraceptive device; Z64.1 Problems related to multiparity; E66.9 Obesity, unspecified; Z68.42 Body mass index [BMI] 45.0-49.9, adult
CPT/HCPCS: 81025; 88300-TC; 88302-TC; 88304-TC; 94760; J0131

== ENCOUNTER 2020-12-07 14:34 | Emergency (ER) | payer OTHER ==
[2020-12-07 14:56] VITALS: TEMP 97; BMI 50.5
[2020-12-07] MEDS ORDERED: LACTATED RINGERS SOLUTION 1000 ML INFUS.BAG IV ONE (15:07)
[2020-12-07] MEDS ORDERED: ONDANSETRON 4 MG/2 ML VIAL IVPUSH ONE (15:07)
[2020-12-07] MEDS ORDERED: FAMOTIDINE 20 MG/50 ML IVPB 20 MG/50 ML MG IVPB ONE ×2 (15:27→15:38)
[2020-12-07] MEDS ORDERED: ACETAMINOPHEN 1000 MG/100 ML VIAL (NON FORMULARY) IVPB ONE (15:27)
[2020-12-07] MEDS ORDERED: MAG HYDROX/AL HYDROX/SIMETH 30 ML UNIT-DOSE CUP PO ONE (15:27)
[2020-12-07] MEDS ORDERED: ONDANSETRON 4 MG/2 ML VIAL ONE (15:28)
[2020-12-07] MEDS ORDERED: morphine CARPU-JECT 4 MG/1 ML DISP.SYRIN IVPUSH ONE ×2 (15:28→16:22)
[2020-12-07 15:37] LABS: EPI CELLS >36 /uL (0-25.1); HYALINE CASTS 24 /uL (0-3.1); PH,URINE 6.5 (5.0-8.0); URINE APPEARANCE TURBID; URINE BACTERIA 5880 /uL (0-1359); URINE BILIRUBIN NEGATIVE (NEGATIVE); URINE COLOR YELLOW; URINE GLUCOSE (UA) NEGATIVE (NEGATIVE); URINE KETONE TRACE (NEGATIVE); URINE LEUK ESTERASE 2+ (NEGATIVE); URINE NITRITE NEGATIVE (NEGATIVE); URINE PROTEIN 1+ (NEGATIVE); URINE WBC 288 /uL (0-25.8)
[2020-12-07] MEDS ORDERED: MORPHINE SULFATE 2 MG/ML VIAL ONE (15:37)
[2020-12-07] MEDS ORDERED: morphine SULFATE 4 MG/ML VIAL ONE ×2 (15:37→16:50)
[2020-12-07] MEDS ORDERED: MAG HYDROX/AL HYDROX/SIMETH 30 ML UNIT-DOSE CUP ONE (15:38)
[2020-12-07] MEDS ORDERED: ACETAMINOPHEN INJECTION 100 ML IVPB ONE (15:38)
[2020-12-07 15:39] LABS: HCG,QUALITATIVE URINE Negative
[2020-12-07 15:41] LABS: BASO % 0.7 % (0-2.0); EOS % 0.8 % (0-4.5); HEMATOCRIT 39.4 % (32.4-45.2); HEMOGLOBIN 13.6 GM/dL (10.7-15.3); LYMPH % 31.2 % (8-40); MCH 29.8 pg (25.7-33.7); MCHC 34.5 g/dl (32.0-36.0); MEAN CELL VOLUME 86.3 fl (80-96); MEAN PLT VOLUME 8.6 fl (7.5-11.1); MONO % 7.7 % (3.8-10.2); NEUT % 59.6 % (42.8-82.8); PLATELET COUNT 361 K/MM3 (134-434); RBC 4.57 M/mm3 (3.60-5.2); RDW 13.5 % (11.6-15.6); WHITE BLOOD COUNT 10.5 K/mm3 (4.0-10.0)
[2020-12-07 16:07] LABS: ALBUMIN 3.9 g/dl (3.4-5.0); BLOOD UREA NITROGEN 10.6 mg/dL (7-18); CALCIUM 9.5 mg/dL (8.5-10.1)
[2020-12-07 16:10] LABS: CREATININE 0.7 mg/dL (0.55-1.3)
[2020-12-07 16:12] LABS: BILIRUBIN,TOTAL 0.3 mg/dL (0.2-1); TOT PROT 8.6 g/dl (6.4-8.2)
[2020-12-07 18:21] VITALS: PULSE 77
[2020-12-07] MEDS ORDERED: METOCLOPRAMIDE HCL INJECTION 10 MG/2 ML VIAL IVPUSH ONE (18:54)
[2020-12-07] MEDS ORDERED: METOCLOPRAMIDE HCL INJECTION 10 MG/2 ML VIAL ONE (19:12)
[2020-12-07] MEDS ORDERED: SIMETHICONE 40 MG/0.6 ML BOTTLE PO ONE (19:30)
[2020-12-07 21:00] VITALS: BP 132/88
== END 2020-12-07 21:00 | disposition home or self-care (01) ==
LOC: JER 14:34
PROC: 3E0333Z Introduction of Anti-inflammatory into Peripheral Vein, Percutaneous Approach (ICD-10-PCS; principal; 2020-12-07)
PROC: 3E033GC Introduction of Other Therapeutic Substance into Peripheral Vein, Percutaneous Approach (ICD-10-PCS; 2020-12-07)
PROC: 3E033NZ Introduction of Analgesics, Hypnotics, Sedatives into Peripheral Vein, Percutaneous Approach (ICD-10-PCS; 2020-12-07)
PROC: 3E033NZ Introduction of Analgesics, Hypnotics, Sedatives into Peripheral Vein, Percutaneous Approach (ICD-10-PCS; 2020-12-07)
PROC: 3E033GC Introduction of Other Therapeutic Substance into Peripheral Vein, Percutaneous Approach (ICD-10-PCS; 2020-12-07)
DX: R10.13 Epigastric pain (principal)
CPT/HCPCS: 36415; 74177-TC; 80053; 81003; 83690; 84703; 85025; 87086; 99285-25; C9803; J0131; Q9967; U0003; U0005

== ENCOUNTER 2021-08-12 14:34 | Emergency (ER) | payer OTHER ==
[2021-08-12 14:59] VITALS: TEMP 98.6; BMI 53.0
[2021-08-12 16:52] VITALS: BP 138/90; PULSE 96
[2021-08-12] MEDS ORDERED: CEFTRIAXONE 1 GM in DEXTROSE 5%-WATER - 100 ML IVPB ONE (17:28)
[2021-08-12] MEDS ORDERED: AZITHROMYCIN IVPB 500 MG in DEXTROSE 5%-WATER - 250 ML IVPB ONE (17:28)
[2021-08-12] MEDS ORDERED: CEFTRIAXONE 1 GM/50 ML BAG ONE (17:33)
[2021-08-12] MEDS ORDERED: AZITHROMYCIN IVPB 500 MG/250 ML BAG IVPB ONE (18:10)
[2021-08-12 18:17] LABS: WHITE BLOOD COUNT 5.8 K/mm3 (4.0-10.0)
[2021-08-12 18:18] LABS: BASO % 0.6 % (0-2.0); EOS % 0.2 % (0-4.5); HEMOGLOBIN 12.5 GM/dL (10.7-15.3); LYMPH % 32.9 % (8-40); MCHC 33.7 g/dl (32.0-36.0); MEAN CELL VOLUME 86.1 fl (80-96); MEAN PLT VOLUME 7.9 fl (7.5-11.1); MONO % 13.9 % (3.8-10.2); NEUT % 52.4 % (42.8-82.8); PLATELET COUNT 313 10^3/uL (134-434); RDW 13.4 % (11.6-15.6)
[2021-08-12 18:22] LABS: VENOUS BASE EXCESS -1.5 mmol/L (-2-2); VENOUS O2 SATURATION 98.8 % (70-80); VENOUS PCO2 43.9 mmHg (38-52); VENOUS PH 7.358 (7.310-7.410)
[2021-08-12 18:38] LABS: CHLORIDE 103 mmol/L (98-107); SODIUM 136 mmol/L (136-145)
[2021-08-12 18:42] LABS: ALBUMIN 3.6 g/dl (3.4-5.0); ANION GAP 9 MMOL/L (8-16); BLOOD UREA NITROGEN 14.9 mg/dL (7-18); CO2 24 mmol/L (21-32); GLUCOSE,RANDOM 70 mg/dL (74-106)
[2021-08-12] MEDS ORDERED: LACTATED RINGERS SOLUTION 1000 ML INFUS.BAG IV ONE (18:43)
[2021-08-12 18:45] LABS: CREATININE 0.8 mg/dL (0.55-1.3); SGOT/AST 19 U/L (15-37); SGPT/ALT 27 U/L (13-61)
[2021-08-12 18:47] LABS: BILIRUBIN,TOTAL 0.3 mg/dL (0.2-1); TOT PROT 8.7 g/dl (6.4-8.2)
[2021-08-12 18:48] LABS: ALK PHOS 74 U/L (45-117)
[2021-08-12] MEDS ORDERED: ACETAMINOPHEN 1000 MG/100 ML BAG IVPB ONE (21:52)
[2021-08-12] MEDS ORDERED: ACETAMINOPHEN INJECTION 100 ML IVPB ONE (22:48)
[2021-08-13 16:02] LABS: LIPASE 77 U/L (73-393)
== END 2021-08-13 00:14 | disposition home or self-care (01) ==
LOC: JER 14:34
DX: R06.9 Unspecified abnormalities of breathing (principal); R07.9 Chest pain, unspecified; J18.9 Pneumonia, unspecified organism
CPT/HCPCS: 36415; 71045-TC-FY; 71275-TC; 74177-TC; 80053; 82272; 82550; 82553; 82803; 83690; 84484; 84703; 85025; 85379; 87040; 87804; 93005; 93010; 99285-25; C9803; Q9967; U0003; U0005

== ENCOUNTER 2022-01-07 06:46 | Emergency (ER) | payer OTHER ==
[2022-01-07 07:00] VITALS: BP 132/77; PULSE 88; TEMP 98.3; BMI 54.0
[2022-01-07] MEDS ORDERED: ACETAMINOPHEN 500 MG TABLET (FP) PO ONE (07:21)
== END 2022-01-07 07:25 | disposition left against medical advice (07) ==
LOC: JER 06:46
DX: R06.02 Shortness of breath (principal); R07.9 Chest pain, unspecified
CPT/HCPCS: 93005; 93010; 99283-25

== ENCOUNTER 2022-07-24 19:26 | Emergency (ER) | payer OTHER ==
[2022-07-24 19:50] VITALS: BP 138/95; PULSE 86; RESP 20; TEMP 98.6; BMI 47.2
[2022-07-24] MEDS ORDERED: FAMOTIDINE 20 MG/50 ML IVPB 20 MG/50 ML MG IVPB ONE (20:47)
[2022-07-24] MEDS ORDERED: SODIUM CHLORIDE 0.9% 500 ML INFUS.BAG IV ONE (20:47)
[2022-07-24] MEDS ORDERED: MAG HYDROX/AL HYDROX/SIMETH 30 ML UNIT-DOSE CUP PO ONE (20:48)
[2022-07-24] MEDS ORDERED: ONDANSETRON 4 MG/2 ML VIAL ONE (21:03)
[2022-07-24] MEDS ORDERED: FAMOTIDINE 10 MG/ML VIAL IVPB ONE (21:04)
[2022-07-24] MEDS ORDERED: ONDANSETRON 4 MG/2 ML VIAL IVPUSH ONE (21:04)
[2022-07-24 21:26] LABS: EPI CELLS >36 /uL (0-25.1); HYALINE CASTS 3 /uL (0-3.1); URINE APPEARANCE CLOUDY; URINE BACTERIA 639 /uL (0-1359); URINE BILIRUBIN NEGATIVE (NEGATIVE); URINE COLOR YELLOW; URINE GLUCOSE (UA) NEGATIVE (NEGATIVE); URINE KETONE 1+ (NEGATIVE); URINE LEUK ESTERASE TRACE (NEGATIVE); URINE NITRITE NEGATIVE (NEGATIVE); URINE PROTEIN 1+ (NEGATIVE); URINE RBC 27 /uL (0-23.9); URINE WBC 50 /uL (0-25.8)
[2022-07-24 22:16] LABS: BASO % 0.5 % (0-2.0); EOS % 1.3 % (0-4.5); HEMATOCRIT 37.6 % (32.4-45.2); HEMOGLOBIN 12.3 GM/dL (10.7-15.3); LYMPH % 26.1 % (8-40); MCH 27.8 pg (25.7-33.7); MCHC 32.6 g/dl (32.0-36.0); MEAN CELL VOLUME 85.3 fl (80-96); MEAN PLT VOLUME 8.3 fl (7.5-11.1); MONO % 6.8 % (3.8-10.2); NEUT % 65.3 % (42.8-82.8); PLATELET COUNT 389 10^3/uL (134-434); RBC 4.41 M/mm3 (3.60-5.2); RDW 13.8 % (11.6-15.6)
[2022-07-24 22:59] LABS: ALBUMIN 3.8 g/dl (3.4-5.0); CALCIUM 9.8 mg/dL (8.5-10.1)
[2022-07-24 23:03] LABS: CREATININE 0.7 mg/dL (0.55-1.3)
[2022-07-24 23:04] LABS: BILIRUBIN,TOTAL 0.3 mg/dL (0.2-1); TOT PROT 8.2 g/dl (6.4-8.2)
== END 2022-07-24 23:42 | disposition left against medical advice (07) ==
LOC: JER 19:26
PROC: 3E033GC Introduction of Other Therapeutic Substance into Peripheral Vein, Percutaneous Approach (ICD-10-PCS; principal; 2022-07-24)
PROC: 3E033GC Introduction of Other Therapeutic Substance into Peripheral Vein, Percutaneous Approach (ICD-10-PCS; 2022-07-24)
DX: R11.2 Nausea with vomiting, unspecified (principal); R10.9 Unspecified abdominal pain; R51.9 Headache, unspecified
CPT/HCPCS: 0241U-QW; 36415; 80053; 81003; 83690; 85025; 87086; 99284-25

== ENCOUNTER 2022-12-09 13:25 | Emergency (ER) | payer OTHER ==
[2022-12-09 13:48] VITALS: BP 134/74; PULSE 88; RESP 17; TEMP 97.9; BMI 34.4
[2022-12-09] MEDS ORDERED: ACETAMINOPHEN 500 MG TABLET (FP) PO ONE (14:06)
[2022-12-09] MEDS ORDERED: ACETAMINOPHEN 500 MG TABLET (FP) ONE (14:07)
[2022-12-09] MEDS ORDERED: BACITRACIN 0.9 GM PACKET TP ONE (15:29)
== END 2022-12-09 17:09 | disposition left against medical advice (07) ==
LOC: JERFT 13:25 → JER 13:25
DX: S90.01XA Contusion of right ankle, initial encounter (principal); M25.571 Pain in right ankle and joints of right foot; M79.651 Pain in right thigh; V28.01XA Electric (assisted) bicycle driver injured in noncollision transport accident in nontraffic accident, initial encounter
CPT/HCPCS: 73564-TC-RT-FY; 73610-TC-RT-FY; 73630-TC-RT-FY; 73700-TC-RT; 99285-25

== ENCOUNTER 2022-12-11 16:35 | Observation (INO) | payer OTHER ==
[2022-12-11 16:46] VITALS: BMI 47.5
[2022-12-11] MEDS ORDERED: PIPERACILLIN/TAZOB 3.375 GM 3.375 GM in DEXTROSE 5%-WATER - 50 ML IVPB ONE (16:58)
[2022-12-11] MEDS ORDERED: VANCOMYCIN 1 GM in D5W (PRE-DOCKED) 1,000 MG/250 ML (RESTRICTED TO ID ONLY IVPB ONE (16:59)
[2022-12-11] MEDS ORDERED: ACETAMINOPHEN 325 MG TABLET (FP) PO ONE (17:11)
[2022-12-11] MEDS ORDERED: ACETAMINOPHEN 325 MG TABLET (FP) ONE (17:18)
[2022-12-11] MEDS ORDERED: PIPERACILLIN/TAZOB 3.375 GM 3.375 GM/50 ML BAG IVPB ONE (17:19)
[2022-12-11] MEDS ORDERED: VANCOMYCIN/WATER FOR INJ (PEG) 1,000 MG/200 ML BAG IVPB ONE (17:19)
[2022-12-11 17:45] LABS: BASO % 0.6 % (0-2.0); EOS % 2.1 % (0-4.5); HEMATOCRIT 35.8 % (32.4-45.2); HEMOGLOBIN 12.5 GM/dL (10.7-15.3); LYMPH % 30.2 % (8-40); MCH 29.6 pg (25.7-33.7); MEAN CELL VOLUME 84.6 fl (80-96); MEAN PLT VOLUME 8.7 fl (7.5-11.1); MONO % 6.2 % (3.8-10.2); NEUT % 60.9 % (42.8-82.8); PLATELET COUNT 327 10^3/uL (134-434); RBC 4.24 M/mm3 (3.60-5.2); RDW 13.4 % (11.6-15.6); WHITE BLOOD COUNT 7.9 K/mm3 (4.0-10.0)
[2022-12-11 18:04] LABS: POTASSIUM 3.7 mmol/L (3.5-5.1)
[2022-12-11] MEDS ORDERED: KETOROLAC TROMETHAMINE 15 MG/ML VIAL IVPUSH ONE (18:04)
[2022-12-11 18:06] LABS: ALBUMIN 3.5 g/dl (3.4-5.0); CALCIUM 9.2 mg/dL (8.5-10.1)
[2022-12-11] MEDS ORDERED: KETOROLAC TROMETHAMINE 15 MG/ML VIAL ONE (18:06)
[2022-12-11 18:07] LABS: BLOOD UREA NITROGEN 8.5 mg/dL (7-18)
[2022-12-11 18:09] LABS: CREATININE 0.7 mg/dL (0.55-1.3)
[2022-12-11 18:11] LABS: BILIRUBIN,TOTAL 0.3 mg/dL (0.2-1); TOT PROT 7.7 g/dl (6.4-8.2)
[2022-12-11 18:23] LABS: ERYTHROCYTE SEDIMENTATION RATE 24 mm/hr (0-20)
[2022-12-11] MEDS ORDERED: KETOROLAC TROMETHAMINE 15 MG/ML VIAL IVPUSH PRN (18:41)
[2022-12-11] MEDS ORDERED: ceFAZolin SODIUM 1 GM VIAL ONE (19:02)
[2022-12-11] MEDS: CEFAZOLIN 2 GM in DEXTROSE 5%-WATER 100 ML IVPB SCH (19:11)
[2022-12-12] MEDS: CEFAZOLIN SODIUM 2 GM in DEXTROSE 5%-WATER 100 ML IVPB SCH ×2 (02:28→10:03)
[2022-12-12] MEDS: CEFAZOLIN 2 GM in DEXTROSE 5%-WATER 100 ML IVPB SCH (02:28)
[2022-12-12 11:19] LABS: HEMATOCRIT 36.3 % (32.4-45.2); HEMOGLOBIN 12.5 GM/dL (10.7-15.3); MCH 29.1 pg (25.7-33.7); MCHC 34.5 g/dl (32.0-36.0); MEAN CELL VOLUME 84.4 fl (80-96); MEAN PLT VOLUME 8.4 fl (7.5-11.1); PLATELET COUNT 371 10^3/uL (134-434); RDW 13.3 % (11.6-15.6); WHITE BLOOD COUNT 9.1 K/mm3 (4.0-10.0)
[2022-12-12 11:40] LABS: POTASSIUM 3.5 mmol/L (3.5-5.1)
[2022-12-12 11:41] VITALS: BP 137/79; PULSE 88; RESP 16; TEMP 98.2
[2022-12-12 11:43] LABS: CALCIUM 9.3 mg/dL (8.5-10.1); MAGNESIUM 2.1 mg/dL (1.8-2.4)
[2022-12-12 11:44] LABS: ALBUMIN 3.6 g/dl (3.4-5.0)
[2022-12-12 11:45] LABS: BLOOD UREA NITROGEN 9.3 mg/dL (7-18)
[2022-12-12 11:47] LABS: CREATININE 0.7 mg/dL (0.55-1.3); PHOSPHOROUS 3.8 mg/dL (2.5-4.9)
[2022-12-12 11:48] LABS: BILIRUBIN,TOTAL 0.4 mg/dL (0.2-1)
== END 2022-12-12 12:20 | disposition home or self-care (01) ==
LOC: JER 16:35 → JERBED 17:28 → J5S 20:00
PROVIDERS: ADMIT Internal Medicine; ATTEND Internal Medicine
PROC: 3E03329 Introduction of Other Anti-infective into Peripheral Vein, Percutaneous Approach (ICD-10-PCS; principal; 2022-12-11)
PROC: 3E0333Z Introduction of Anti-inflammatory into Peripheral Vein, Percutaneous Approach (ICD-10-PCS; 2022-12-11)
DX: S93.401A Sprain of unspecified ligament of right ankle, initial encounter (principal); V28.49XA Other motorcycle driver injured in noncollision transport accident in traffic accident, initial encounter; Y93.89 Activity, other specified; F31.9 Bipolar disorder, unspecified; Y92.410 Unspecified street and highway as the place of occurrence of the external cause; E66.01 Morbid (severe) obesity due to excess calories; Z68.42 Body mass index [BMI] 45.0-49.9, adult
CPT/HCPCS: 0241U-QW; 36415; 80053; 83735; 84100; 84443; 84703; 85025; 85027; 85651; 86140; 87040; 96365; 96367; 96375; 96376; 99285-25; G0378

== ENCOUNTER 2024-04-06 10:38 | Emergency (ER) | payer OTHER ==
[2024-04-06 11:10] VITALS: BP 135/93; PULSE 85; RESP 16; TEMP 98.3; BMI 44.4
== END 2024-04-06 15:11 | disposition left against medical advice (07) ==
LOC: JERFT 10:38 → JER 10:38 → JERFT 15:11
DX: L02.214 Cutaneous abscess of groin (principal)
CPT/HCPCS: 99281-25